=== PATIENT | female | born 2005 | race Caucasian/White ===

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

== ENCOUNTER 2023-07-16 11:51 | Outpatient (CLI) | payer OTHER, SELFPAY ==
[2023-07-16 12:10] LABS: Basophils Percent Auto 0.5 % (0.2-1.2); Eosinophils Absolute Auto 0.1 K/mm3 (0-0.3); Eosinophils Percent Auto 1.2 % (0-4.4); Hematocrit 33.8 % (37.0-47.0); Hemoglobin 10.6 g/dL (12.0-15.0); Immature Granulocyte Absolute 0.03 K/mm3 (0.00-0.031); Immature Granulocyte Percent A 0.4 % (0-0.5); Lymphocytes Absolute Auto 2.02 K/mm3 (0.9-3.2); Lymphocytes Percent Auto 24.3 % (18.3-44.2); Mean Corpuscular HGB Conc 31.4 g/dl (32-36); Mean Corpuscular Hemoglobin 26.6 pg (26-34); Mean Corpuscular Volume 84.9 fl (80-100); Mean Platelet Volume 10.6 fl (7.4-10.4); Monocytes Absolute Auto 0.6 K/mm3 (0.1-0.6); Monocytes Percent Auto 6.9 % (2.6-8.5); Neutrophils Absolute Auto 5.6 K/mm3 (1.3-6.7); Neutrophils Percent Auto 66.7 % (45.5-73.1); Platelet Count Result 347 k/mm3 (150-375); Red Blood Count 3.98 M/mm3 (4.2-5.4); White Blood Count 8.3 K/mm3 (4.5-10.0)
[2023-07-16 12:31] LABS: Hemoglobin A1C 5.2 % (<5.7)
[2023-07-16 12:45] LABS: Alanine Aminotransferase 28 U/L (6-35); Albumin Level 4.9 g/dL (3.7-5.6); Alkaline Phosphatase 70 U/L (45-116); Anion Gap 7 mmol/L (4-12); Aspartate Amino Transferase 23 U/L (14-36); Bilirubin,Total 0.4 mg/dL (0.2-1.3); Blood Urea Nitrogen 8 mg/dL (8-21); Calcium 9.5 mg/dL (8.9-10.7); Carbon Dioxide 25 mmol/L (22-30); Chloride 104 mmol/L (98-107); Cholesterol 157 mg/dL (0-200); Estimated Glomerular Filt Rate > 60; Glucose 90 mg/dL (65-110); HDL Direct 48 mg/dL; Sodium 136 mmol/L (134-143); Triglycerides 127 mg/dL (<150)
[2023-07-16 12:55] LABS: LDL Cholesterol Direct 96 mg/dL
[2023-07-16 14:14] LABS: Folic Acid 7.6 ng/mL (2.76->20)
== END 2023-07-16 11:52 | disposition home or self-care (01) ==
LOC: ANHLAB 11:52
PROVIDERS: PCP Physician Assistant; Visit Provider Physician Assistant
DX: Z00.00 Encounter for general adult medical examination without abnormal findings (principal); R73.9 Hyperglycemia, unspecified
CPT/HCPCS: 36415; 80053; 80061; 82607; 82746; 83036; 84443; 85025

== ENCOUNTER 2023-07-24 15:35 | Outpatient (CLI) | payer OTHER, SELFPAY ==
[2023-07-24 16:11] LABS: Iron 39 ug/dL (37-170)
[2023-07-24 16:21] LABS: Percent Iron Saturation 9 % (20-50)
[2023-07-24 16:46] LABS: Ferritin 6.07 ng/mL (6.24-137)
== END 2023-07-24 15:36 | disposition home or self-care (01) ==
LOC: ANHLAB 15:36
PROVIDERS: PCP Physician Assistant; Visit Provider Physician Assistant
DX: D64.9 Anemia, unspecified (principal)
CPT/HCPCS: 36415; 82728; 83540; 83550

== ENCOUNTER 2023-08-10 11:24 | Outpatient (CLI) | payer OTHER, SELFPAY ==
[2023-08-10 12:17] LABS: Beta HCG Quantitative < 2.39 mIU/ML
== END 2023-08-10 11:25 | disposition home or self-care (01) ==
LOC: ANHLAB 11:25
PROVIDERS: PCP Physician Assistant; Visit Provider Physician Assistant
DX: N92.6 Irregular menstruation, unspecified (principal)
CPT/HCPCS: 36415; 84702

== ENCOUNTER 2023-08-14 07:03 | Day surgery (SDC) | payer OTHER, SELFPAY ==
[2023-07-31 09:05] VITALS: BMI 29.9
[2023-08-01 14:07] VITALS: BMI 29.9
--- NOTE | 2023-08-10 08:54 | P.HP_ITS ---
History of Present Illness History of Present Illness Consent: Risks, benefits, and alternatives have been discussed and questions answered. Patient agrees to proceed with procedure. Chief complaint: Melena Narrative: Pedro Win is a 17 year old female who was recently found to be anemic during wellness exam. Hemoglobin was 10.6. Iron is low at 9% saturation. is having heavy periods. She will at times see some red blood when wiping herself after a bowel movement. Review of Systems Review of Systems: All systems reviewed & are unremarkable except as noted in HPI and below PMFSH Past Medical History Medical History Depression Surgical History Surgical History History of tonsillectomy Family History Family History Unknown Cancer Social History Social History Smoking status: Current every day smoker Tobacco type: e-cigarettes/vaping Alcohol intake: current Alcohol use details: occasional Substance use: unknown Substance use type: does not use Lack of Transportation: No Lack of Food: Never True Current Housing: I Have Housing Concerned About Future Housing: No Difficulty Paying Gas/Electric Bills: No Difficulty Paying for Meds: No Currently Unemployed: No Education: High School Diploma/GED Difficulty w/ Childcare or Family Care: No Living arrangements: with family Spiritual care concerns: No Meds Home Medications and Allergies Home Medications Medication Instructions Recorded Confirmed Type aripiprazole 2 mg tablet 2 mg PO DAILY #1 tablet 07/16/23 08/14/23 Rx venlafaxine 150 mg tablet,extended 150 mg PO DAILY #1 tablet 07/16/23 08/14/23 R x release 24 hr venlafaxine 75 mg tablet,extended 75 mg PO DAILY #1 tablet 07/16/23 08/14/23 Rx release 24 hr Allergies Allergy/AdvReac Type Severity Reaction Status Date / Time No Known Allergies Allergy Verified 08/14/23 07:46 Exam Const: General: alert Orientation/consciousness: patient oriented x3 Resp: Auscultation: clear to auscultation bilaterally Cardio: Rhythm: regular rhythm GI: GI Palp: Yes Soft to palpation and No Tenderness to palpation present (GI) Neuro: General: patient oriented x3 Assessment and Plan Assessment and plan (1) Iron deficiency anemia: Code(s): D50.9 - Iron deficiency anemia, unspecified Status: Acute Assessment and Plan: EGD with possible biopsy or dilatation or cautery. Colonoscopy with possible biopsy or polypectomy or cautery or injection of substances.
[2023-08-14 07:56] VITALS: BMI 31.8
[2023-08-14 07:57] VITALS: BP 137/77; PULSE 78; RESP 16; TEMP 37; O2SAT 99
[2023-08-14] MEDS: LACTATED RINGERS 1,000 ML 150 ML IV CONT (08:12)
--- NOTE | 2023-08-14 08:17 | P.PNAN_ITS ---
Anes - Initial Pre Proc Eval Procedure: Operation Date: 08/14/23 09:00 Proposed Procedures p Esophagogastroduodenoscopy - Pieter Gallardo MD s Diagnostic Colonoscopy - Pieter Gallardo MD Date/Time: 08/14/23 08:17 Surgeon: Pieter Gallardo MD Pre Op Diagnosis: Melena Patient Data Age: 17 Gender: F Height: 1.68 m Weight: 89.7 kg Last Vital Signs Temp 37.0 C 08/14/23 07:57 Pulse 78 08/14/23 07:57 Resp 16 08/14/23 07:57 BP 137/77 08/14/23 07:57 Pulse Ox 99 08/14/23 07:57 O2 Del Method Room Air 08/14/23 07:57 Allergies Allergy/AdvReac Type Severity Reaction Status Date / Time No Known Allergies Allergy Verified 08/14/23 07:46 Home Medications Medication Instructions Recorded Confirmed Type aripiprazole 2 mg tablet 2 mg PO DAILY #1 tablet 07/16/23 08/14/23 Rx venlafaxine 150 mg tablet,extended 150 mg PO DAILY #1 tablet 07/16/23 08/14/23 Rx release 24 hr venlafaxine 75 mg tablet,extended 75 mg PO DAILY #1 tablet 07/16/23 08/14/23 Rx release 24 hr Patient hx anesthesia problems: none Family hx anesthesia problems: none Results Review: All pre-operative results and documents have been reviewed as part of the pre- operative evaluation. [facility] Past Medical History Medical History Depression Surgical History Surgical History History of tonsillectomy Family History Family History Unknown Cancer Social History Social History Smoking status: Current every day smoker Tobacco type: e-cigarettes/vaping Alcohol intake: current Alcohol use details: occasional Substance use: unknown Substance use type: does not use Lack of Transportation: No Lack of Food: Never True Current Housing: I Have Housing Concerned About Future Housing: No Difficulty Paying Gas/Electric Bills: No Difficulty Paying for Meds: No Currently Unemployed: No Education: High School Diploma/GED Difficulty w/ Childcare or Family Care: No Living arrangements: with family Spiritual care concerns: No Anes - Eval Final PreProcedure Day of Procedure 08/14/23 08:17 Patient weight: overweight Heart: regular rate and rhythm Lungs: clear to auscultation Airway: Mallampati scale class II Neurological: alert and oriented Last oral intake: >/= 8 hours ASA classification: II Emergent: no Anesthetic plan: proceed Anesthesia type and monitoring: general GIVS and standard monitoring Results Review: All pre-operative results and documents have been reviewed as part of the pre- operative evaluation. Informed Consent: The patient's anesthetic plan and its attendant risks and benefits were discussed with the patient/family/POA. Questions were solicited and answers provided to the satisfaction of the patient/family/POA.
[2023-08-14 09:00] VITALS: BP 149/112; PULSE 77; RESP 16
[2023-08-14 09:40] VITALS: BP 116/69; PULSE 75; RESP 16; O2SAT 100
--- NOTE | 2023-08-14 09:48 | WPDANESPN ---
Anes - Prog Note Post-Op Date/Time: 08/14/23 09:48 Cardiovascular status: normal Respiratory status: normal Airway patency: baseline Mental status: baseline Post-Op hydration status: normal Vital Signs: Last Vital Signs Temp 37.0 C 08/14/23 07:57 Pulse 75 08/14/23 09:40 Resp 16 08/14/23 09:40 BP 116/69 08/14/23 09:40 Pulse Ox 100 08/14/23 09:40 O2 Del Method Room Air 08/14/23 09:40 Pain Score (VAS): 0 I/O: Intake & Output 08/13/23 08/14/23 08/14/23 23:59 07:59 15:59 Intake Total 700 Balance 700 Patient Feedback: Patient satisfied with anesthetic care.
[2023-08-14 09:50] VITALS: BP 119/73; PULSE 57; RESP 16; O2SAT 100
== END 2023-08-14 10:02 | disposition home or self-care (01) ==
PROVIDERS: PCP Physician Assistant; Visit Provider Internal Medicine Gastroenterology
PROC: 0DJ08ZZ Inspection of Upper Intestinal Tract, Via Natural or Artificial Opening Endoscopic (ICD-10-PCS; CPT 43235; principal; 2023-08-14 09:00)
PROC: 0DJD8ZZ Inspection of Lower Intestinal Tract, Via Natural or Artificial Opening Endoscopic (ICD-10-PCS; CPT 45378; 2023-08-14 09:00)
DX: D50.9 Iron deficiency anemia, unspecified (principal); Z12.11 Encounter for screening for malignant neoplasm of colon; K64.8 Other hemorrhoids
CPT/HCPCS: 45378; 43239

== ENCOUNTER 2023-08-14 09:35 | Outpatient (NON) | payer OTHER, SELFPAY | END 2023-08-14 09:36 | disposition home or self-care (01) | LOC: ANHLAB 08-15 09:36 | PROVIDERS: PCP Physician Assistant; Visit Provider Internal Medicine Gastroenterology | DX: K92.1 Melena (principal) | CPT/HCPCS: 88305 ==

== ENCOUNTER 2024-04-28 17:03 | Emergency (ER) | payer OTHER, SELFPAY ==
--- NOTE | ~2024-04-28 | US_ITS ---
EXAMINATION: US pelvic complete DATE: 04/28/2024 19:11 INDICATION: Left lower quadrant abdominal pain. TECHNIQUE: Multiple transabdominal sonographic images of the pelvis were obtained. COMPARISON: None. FINDINGS: The uterus is poorly visualized and measures 6.0 x 4.0 x 3.9 cm. There is no free fluid in the pelvis . The ovaries are not visualized. IMPRESSION: 1. Poorly visualized uterus. 2. Ovaries not visualized. Reviewed, dictated and finalized at location A. IDE SALES ADVERTISING EXECUTIVE
--- NOTE | ~2024-04-28 | CT_ITS ---
EXAMINATION: CT abdomen pelvis w con DATE: 04/28/2024 20:37 INDICATION: Left abdominal pain. Nausea. TECHNIQUE: Computed tomography (CT) of the abdomen and pelvis was performed with 100 mL Omnipaque 350 intravenous contrast. Automated exposure control and iterative reconstruction technique were employe d. The dose-length product was 1213.99 mGy-cm. COMPARISON: Pelvis ultrasound 04/28/2024 FINDINGS: The visualized portions of the lung bases are clear without pneumonia or pleural effusion. The heart size is normal. No pericardial effusion. The liver, gallbladder, spleen, pancreas, adrenal glands, and kidneys are normal. The uterus and ovaries are normal. There is fat stranding around an e piploic appendage of the sigmoid colon, consistent with epiploic appendagitis. The appendix is fluid- filled with diameter of 7 mm. No adjacent fat stranding. There are no dilated loops of bowel. There i s no free intraperitoneal fluid. There is mild lumbar spondylosis. IMPRESSION: 1. Epiploic appendagitis of the sigmoid colon. 2. Appendiceal diameter of 7 mm, which is indeterminate for appendicitis. Correlate with physical exa m. Reviewed, dictated and finalized at location A. INE CEMENTER IMPRESSION: 1. Epiploic appendagitis of the sigmoid colon. 2. Appendiceal diameter of 7 mm, which is indeterminate for appendicitis. Corre late with physical exam.
--- OUTSIDE RECORDS SUMMARY | 2024-04-28 17:05 | XMS_ITS ---
Author Organization [facility] Address [address] [place] [address] Care Team Providers Care Investment Specialist Name Role Phone Florina Odonnell Primary Care Provider Allergies No Known Allergies Reason For Referral Reason Would like to start therapy. Diagnosis 1 Major depressive dis order, recurrent, moderate (F33.1) Referral Organization [facility] Referring Provider First Name Florina Referring Provider Last Name Blas Referring Provider Speciality Psychiatry Referred Provider Specialty Behavioral [facility] Clinical Notes Nichole Ordonez 02/01/2024 02:57:42 PM CDT > HN called the client and provided the number to CA [phone]. Client states she understands the process and will call CA to initiate starting the therapy process. Client knows not to leave any messages and to wait for a live person. Once the client is open to services, she is aware she should call on Sun or at 0630 to schedule a same day appt. Client was also provided the HN direct phone number just in case she needs any assistance with getting this process started, .Nichole Ordonez 02/04/2024 01:26:31 PM SWE[employer]ER > Appt scheduled with Brinda Odonnell for 02-12-24, still do not see therapy set up yet.Mery Kristina L 02/07/2024 07:52:43 AM >HN called client to address therapy getting started. Left message for client to return a call to update the status of therapy getting started. Referral Priority Routine REASON FOR VISIT 3 Month Psych F/U & Med Refill Medications Medication SIG (Take, Route, Fr equency, Duration) Notes Start Date End Date Status Effexor XR 75 MG 1 capsule with food Orally Once a day for 30 days 05/26/2022 Active Effexor XR 150 MG 1 capsule with food Orally Once a day for 30 days Active Nexplanon 68 MG as directed Subcutaneous Not-Taking ARIPiprazole 5 MG 1 tablet Orally Once a day for 30 days Active Social History Tobacco Use: Social History Observation Description Date Details (start date - stop date) Never Smoker NA - NA Sex Assigned At : Social History Observation Description Sex Assigned At Female Tobacco Control (Standard) Question Answer Notes Tobacco use: Nonsmoker Encounters Encounter Location Date Provider Diagnosis [facility] [address] [place] [address] 01/15/2024 Florina Odonnell Major depressive disorder, recurrent, moderate F33.1 and Generalized anxiety disorder F41.1 Assessments Encounter Date Diagnosis (ICD Code) Assessment Notes Treatment Notes Treatment Clinical Notes Section Notes 01/15/2024 Major depressive disorder, recurrent, moderate (ICD-10 - F33.1) Increase Abilify to help with depression. Can increase to 1/2 tab first. Stopping caffeine in the afternoon to help with sleep and racing thoughts. Continue services as scheduled. Labs completed recently. May self-administer medications or be administered own oral medications per [facility] protocols. Provided informed consent with understanding of side effects, adverse effects, risks and benefits as well as alternative treatments as previously discussed and with the above recommended medications & other aspects of the treatment program. Agrees to return sooner if symptoms worsen or suicidal or homicidal ideations occur. 01/15/2024 Generalized anxiety disorder (ICD-10 - F41.1) Plan Of Treatment Medication Medication Name Sig Start Date Stop Date Notes Effexor XR 75 MG 1 capsule with food Orally Once a day for 30 days 05/26/2022 Effexor XR 150 MG 1 capsule with food Orally Once a day for 30 days ARIPiprazole 5 MG 1 tablet Orally Once a day for 30 days Treatment Notes Assessment Notes Major depressive disorder, r ecurrent, moderate Increase Abilify to help with depression. Can increase to 1/2 tab first. Stopping caffeine in the afternoon to help with sleep and racing thoughts. Continue services as scheduled. Labs completed recently. May self-administer medications or be administered own oral medications per [facility] protocols. Provided informed consent with understanding of side effects, adverse effects, risks and benefits as well as alternative treatments as previously discussed and with the above recommended medications & other aspects of the treatment program. Agrees to return sooner if symptoms worsen or suicidal or homicidal ideations occur. Referrals Referral Date Details 01/15/2024 01/15/2024, Would emmanuel jackson to start therapy. Next Appt Details Follow Up: 4 Weeks, Reason: Medication management - can be telehealth appt. Progress Notes * Nile LINaDOB:2005 (1 0 yo F)Acc No.[id number]:01/15/2024 Patient:?Pedro LIN Provider:?Florina Odonnell DNP, PMHNP- , [employer] :2005???Age:18 Y???Sex:Female D ate:01/15/2024 Address:[address] [place], [place] [id number] Subjective: * Chief Complaints: * ???3 Month Psych F/U & Med R efill * HPI: ???Depression Screening:?PHQ-9?Little interest or pleasure in doing things?Not at all ?Feeling down, depressed, or hopeless?Several days ?Trouble falling or staying asleep, or sleeping too much?Nearly every day ?Feeling tired or having little energy?Several days ?Poor appetite or overeating?Not at all ?Feeling bad about yourself or that you are a failure, or have let yourself or your family down?Not at all ?Trouble concentrating on things, such as reading the newspaper or watching television?Not at all ?Moving or speaking so slowly that other people could have noticed; or the opposite, being so fidgety or restless that you have been moving around a lot more than usual?Not at all ?Thoughts that you would be better off or of hurting yourself in some way?Not at all ?Total Score?5 ?Interpretation?Mild Depression ?Intervention?Depression Screening Findings?Negative ?Follow-Up for Depression?No Referral necessary, patient involved in behavioral health treatment . ???Screening:?[place] Suicide Severity Rating Scale (LF)?Do you want to initiate with?Screener form ?Interpretation:?Low Risk ?6. Suicide Behaviour: Have you ever done anything,started to do anything, or prepared to end your life??No ?2. Suicidal Thoughts: Have you actually had any thoughts of killing yourself??No ?1. Wish to be : Have you wished you were or wished you could go to sleep and not wake up??No ???CSSRS Interpretation and Follow Up Plan:? CSSRS Interpretation and Follow Up Plan. ?CSSRS Interpretation and Follow Up Plan?Moderate or High risk requires selection of a follow up plan?CSSRS No/Low: intervention not needed at this time ???Psych F/U:? Patient presents for psychiatric follow-up visit. Changes since the last visit-- Has been feeling out of sorts in her head. Got a new job after working in a bad work environment. Been feeling bad. Does feeling happy at times. Her dog makes her happy.? Goals--- Tournament in soccer.? Coping Skills-- Reading. Puppy- cypriot henry and vitor devliniel Medications effective.---Somewhat effective. Would like to change the dose.? Medication Adherence--- Yes Side effects.--- Denies current SE Sleep--- Difficulty falling and staying asleep. Racing thoughts at night.??Has been drinking caffeine at night.? Appetite--- Good. Depression--- 07/10 Anxiety--- 10/09 Anger/Irritability--- 08/09 Hallucinations--- Denies. Suicidal ideation--- Denies Homicidal ideation--- Denies. Medical concerns or hospitalizations. No changes Therapy-- Denies. ???Abnormal Involuntary Movement Scale:?Denies : Facial and Oral Movements?Muscles of Facial Expression?0- None ?Lips and Perioral Area?0- None ?Jaw?0- None ?Tongue?0- None ?Denies : Extremity Movements?Upper (arms, wrists, hands, fingers)?0- None ?Lower (legs, knees, ankles, toes)?0- None ?Denies : Trunk Movements?Neck, Shoulders and hips?0- None ?Denies : Global Judgement?Severity of abnormal movements overall?0- None ?Incapacitation due to abnormal movements?0- None ?Patient's awareness of abnormal movements?0- No Awareness ?Denies : Dental Status?Current problems with teeth and/or dentures?No ?Are dentures usually worn??No ?Endentia?No ?Do movements disappear with sleep??No ?Denies : Subjective Experience .? * ROS:?Psych ROS:?Constitutional?Denies.?Eyes?Denies.?Ears/Nose/Mouth/Throat?Denies.?Respirat ory?Denies.?Allergic /Immunologic?Denies.?Cardiovascular?Denies.?GI?Denies.??Denies.?Musculoskeleta l?Denies.?Ne u rological?Denies.?Integumentary?Denies.?Endocrine?Denies.?Hematological/Lymphati c?Denies.?Psychiatric- Anxiety. * Medical History:? * Surgical History:?tonsillect lianet 2007 * Hospitalization/Major Diagno stic Procedure:?[facility] 07/2021 * Family History:?Father: jann fajardo.?Mother: alive.?2 sister(s) - healthy. .? 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 ???Tobacco Use:?Tobacco Control (Standard)?Tobacco use:?Nonsmoker * Medications:?TakingEffexor X R 150 MG Capsule Extended Release 24 Hour 1 capsule with food Orally Once a day Effexor XR 75 MG Capsule Extended Release 24 Hour 1 capsule with food Orally Once a day ARIPiprazole 2 MG Tablet 1 tablet Orally Once a day Taking Effexor XR 150 MG Capsule Extended Release 24 Hour 1 capsule with food Orally Once a day Taking Effexor XR 75 MG Capsule Extended Release 24 Hour 1 capsule with food Orally Once a day Taking ARIPiprazole 2 MG Tablet 1 tablet Orally Once a day Not-TakingNexplanon 68 MG Implant as directed Subcutaneous Medication List reviewed and reconciled with the patientNot-Taking Nexplanon 68 MG Implant as directed Subcutaneous Medication List reviewed and reconciled with the patient * Allergies:?N.K.D.A.no[Allerg ies Verified] Objective: * Vitals:? * Examination: ???Mental Status Exam: ?SENSORIUM AND COGNITION?Alert , Oriented to Person , Oriented to Place , Oriented to Time , Oriented to Situation.?ATTENTION AND CONCENTRATION?No deficits.?ATTITUDE AND BEHAVIOR?Cooperative.?MEMORY?Immediate , Recent , Remote.?AFFECT?Broad/Full.?MOOD?Euthymic.?SPEECH QUANTITY?Appropriate.?SPEECH QUALITY?Spontaneous , Fluent , Appropriate volume.?THOUGHT PROCESS?Coherent and goal directed.?THOUGHT CONTENT?Appropriate - WNL.?LANGUAGE?Appropriate- WNL.?SUICIDAL IDEATION?Denies suicidal ideation.?HOMICIDAL IDEATION?Denies homicidal ideation.?HALLUCINATIONS?Denies hallucinations.?INSIGHT?Fair.?JUDGMENT?Fair.?FUND OF KNOWLEDGE?Fair.?ABILITY TO PARTICIPATE IN TREATMENT?Moderate?.?WILLINGNESS TO PARTICIPATE IN TREATMENT?Moderate.?SIGNIFICANT FINDINGS REGARDING MENTAL STATUS?None.? Assessment: * Assessment: 1.?Major depressive disorder , recurrent, moderate - F33.1 (Primary)???2.?Generalized anxiety disorder - F41.1??? Plan: * Treatment: * Procedure Codes:? 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 History and Physical Notes * HPI (History of Present Illness) Category Sub-Category Detail Notes Category Not es Depression Screening PHQ-9 Little inte rest or pleasure in doing things: Not at all Feeling down, depressed, or hopeless: Se veral days Trouble falling or staying asleep, or sl eeping too much: Nearly every day Feeling tired or having little energy: S everal days Poor appetite or overeating: Not at all Feeling bad about yourself o r that you are a failure, or have let yourself or your family down: Not at all Trouble concentrating on thi ngs, such as reading the newspaper or watching television: Not at all Moving or speaking so slowly that other people could have noticed; or the opposite, being so fidgety or restless that you have been moving around a lot more than usual: Not at all Thoughts that you would be b mario alberto off or of hurting yourself in some way: Not at all Total Score: 5 Interpretation: Mild Depression Intervention Depression Screening Findings: N egative Follow-Up for Depression: No Referral necessary, patient involved in behavioral health treatment . Abnormal Involuntary Movement Scale Facial and Oral Movements Muscles of Facial Expression: 0- None Lips and Perioral Area: 0- None Jaw: 0- None Tongue: 0- None Extremity Movements Upper (arms, wrists, hands, fingers): 0- None Lower (legs, knees, ankles, toes): 0- No ne Trunk Movements Neck, Shoulders and hips: 0- Non e Global Judgement Severity of abnormal movements overall: 0- None Incapacitation due to abnormal movements : 0- None Patient's awareness of abnormal movement s: 0- No Awareness Dental Status Current problems with teeth and/ or dentures: No Are dentures usually worn?: No Endentia: No Do movements disappear with sleep?: No Subjective Experience Screening [place] Suicide Sev erity Rating Scale (LF) Do you want to initiate with: Screener form ?Interpretation:: Low Risk ?6. Suicide Behaviour: Have you ever done anything,started to do anything, or prepared to end your life?: No ?2. Suicidal Thoughts: Have you actually had any thoughts of killing yourself?: No ?1. Wish to be : Have yo u wished you were or wished you could go to sleep and not wake up?: No Do Not Use CSSRS Interpretation and Follow Up Plan CSSRS Interpretation and Follow Up Plan Moderate or High risk requires selection of a follow up plan: CSSRS No/Low: intervention not needed at this time Examination Category Sub-Category Detail Notes Category Not es Mental Status Exam SENSORIUM AND COGNITION Alert , Oriented to Person , Oriented to Place , Oriented to Time , Oriented to Situation ATTENTION AND CONCENTRATION No deficits ATTITUDE AND BEHAVIOR Cooperative MEMORY Immediate , Recent , Remote AFFECT Broad/Full MOOD Euthymic SPEECH QUANTITY Appropriate SPEECH QUALITY Spontaneous , Fluent , Appropriate volume THOUGHT PROCESS Coherent and goal di rected THOUGHT CONTENT Appropriate - WNL SUICIDAL IDEATION Denies suicidal idea tion HOMICIDAL IDEATION Denies homicidal lien ation HALLUCINATIONS Denies hallucination s INSIGHT Fair JUDGMENT Fair FUND OF KNOWLEDGE Fair ABILITY TO PARTICIPATE IN TREATMENT Mode rate WILLINGNESS TO PARTICIPATE IN TREATMENT Moderate SIGNIFICANT FINDINGS REGARDI NG MENTAL STATUS None LANGUAGE Appropriate- WNL Consultation Request Notes Referral Date Referring Provider Referred Provider Not socorro 01/15/2024 Florina Odonnell , Would like to start therapy.
--- OUTSIDE RECORDS SUMMARY | 2024-04-28 17:05 | XMS_ITS | Continuity of Care Document ---
Author Name [facility] Organization [facility] Care Team Providers Care Italian Tutor Name Role Phone [facility] Unavailable Unavailable Vital Signs Combined list of inpatient and outpatient Vital Signs from [facility], ranging from 12 months to all on record, depending upon the facility. Vital Sign Value Date Comments Source No data available for this section Ambulatory Pharmacy Encounters Combined list of: 1) Encounters from [facility] facilities going back up to thelast 18 months. 2) Encounters from the [facility] facilities going back up to 280 months. Location Location Details Encounter Type Encounter Number Reason For Visit Attending Provider ADM Date DC Date Status Disposition Source Ambulator y Pharmacy Lifetime Pharmacy [id number] 01/23 Ambulat ory Pharmac y Procedures Combined list of: 1) Procedures from [facility] facilities going back up to thelast 18 months, not all [place] non-surgical procedures are included; 2) All procedures from the [facility] facilities. Procedure Procedure Type Code Date Perfomer Comments Sourc e No data available for this section Ambulatory P harmacy Assessment and Plan Combined list of future care activities from [facility] facilities (e.g., assessment and plan notes, appointments, orders, and referrals). Additional future care activities may be listed in the Plan of Care section. Result Assessment and Plan Date Source Assessment and Plan No data available for this section 04/28/2024 Ambulatory Pharmacy Functional Status Combined list of recent functional and cognitive assessments recorded at [facility] Functional [place] Measurement (FIM) Scale: 1 = Total Assistance (Subject = 0% +), 2 = Maximal Assistance (Subject = 25% +), 3 = Moderate Assistance (Subject = 50% +), 4 = Minimal Assistance (Subject = 75% +), 5 = Supervision, 6 = Modified [place] (Device), 7 = Complete [place] (Timely, Safely). Assessment Date/Time Source Assessment Type Assessment Skill Assessment Score Assessment Details No data available for this section
--- OUTSIDE RECORDS SUMMARY | 2024-04-28 17:05 | XMS_ITS | Patient Health Record ---
Author Organization [facility] Address [address] [place] [address] Care Team Providers Care Patient Financial Rep Name Role Phone Florina Odonnell Primary Care Provider [phone] Toni Cuadra Unavailable Allergies No Known Allergies Reason For Referral Reason Would like to start therapy. Diagnosis 1 Major depressive dis order, recurrent, moderate (F33.1) Referral Organization [facility] Referring Provider First Name Florina Referring Provider Last Name Blas Referring Provider Speciality Psychiatry Referred Provider Specialty Behavioral H [facility] Clinical Notes Nichole Ordonez 02/01/2024 02:57:42 PM CDT > HN called the client and provided the number to [place] [phone]. Client states she understands the process and [...] process started, .Nichole Ordonez 02/04/2024 01:26:31 PM CUPOLA PATCHER HELPER > Appt scheduled with Brinda Odonnell for 02-12-24, still do not see therapy set up yet.Mery Kristina L 02/07/2024 07:52:43 AM >HN called client to address therapy getting started. Left message for client to return a call to update the status of therapy getting started. Referral Priority Routine Medications Medication SIG (Take, Route, Fr equency, Duration) Notes Start Date End Date Status Nexplanon 68 MG as directed Subcutaneous Not-Taking Effexor XR 150 MG 1 capsule with food Orally Once a day for 30 days Active Effexor XR 75 MG 1 capsule with food Orally Once a day for 30 days 05/26/2022 Active Social History Tobacco Use: Social History Observation Description Date Details (start date - stop date) Current Smoker NA - NA Sex Assigned At : Social History Observation Description Sex Assigned At Female Tobacco Control (Standard) Question Answer Notes Tobacco use: Current smoker How often do you smoke cigarettes? Every day Problems Problem Type SNOMED Code ICD Code Onset Dates Problem Status W/U Status Risk Notes Problem Tobacco user (223806594) Nicotine dependence, unspecified, uncomplicated (F17.200) Active confirmed Problem 232527809 Major depressive disorder, recurrent, moderate (F33.1) Active confirmed Problem 75174375 Generalized anxiety disorder (F41.1) Active confirmed Encounters Encounter Location Date Provider Diagnosis [facility] [place] [address] 07/05/2023 Florina Odonnell Major depressive disorder, recurrent, moderate F33.1 and Generalized anxiety disorder F41.1 [place] [address] [place] [address] 08/14/2023 Florina Odonnell Major depressive disorder, recurrent, moderate F33.1 ; Generalized anxiety disorder F41.1 and Nicotine dependence, unspecified, uncomplicated F17.200 [place] [address] [place] [address] 01/15/2024 Florina Odonnell Major depressive disorder, recurrent, moderate F33.1 and Generalized anxiety disorder F41.1 [place] [address] [place] [address] 02/12/2024 Florina Odonnell Major depressive disorder, recurrent, moderate F33.1 and Generalized anxiety disorder F41.[address] [address] 06/25/2023 Florina Odonnell [address] [place] [address] 08/06/2023 Florina Odonnell Major depressive disorder, recurrent, moderate F33.1 [facility] [address] [place] [address] 01/10/2024 Florina Odonnell Major depressive disorder, recurrent, moderate F33.1 [facility] [address] [place] [address] 01/30/2024 Toni Cuadra Assessments Encounter Date Diagnosis (ICD Code) Assessment Notes Treatment Notes Treatment Clinical Notes Section Notes 08/06/2023 Major depressive disorder, recurrent, moderate (ICD-10 - F33.1) 08/14/2023 Major depressive disorder, recurrent, moderate (ICD-10 - F33.1) Continue current medications. Continue services as scheduled. Labs completed recently. May self-administer medications or be administered own oral medications per [employer] protocols. Provided informed consent with understanding of side effects, adverse effects, risks and benefits as well as alternative treatments as previously discussed and with the above recommended medications & other aspects of the treatment program. Agrees to return sooner if symptoms worsen or suicidal or homicidal ideations occur. 02/12/2024 Major depressive disorder, recurrent, moderate (ICD-10 - F33.1) Stop abilify due to side effects. Consistency encouraged on effexor. Continue services as scheduled. Labs completed recently. May self-administer medications or be administered own oral medications per [employer] protocols. Provided informed consent with understanding of side effects, adverse effects, risks and benefits as well as alternative treatments as previously discussed and with the above recommended medications & other aspects of the treatment program. Agrees to return sooner if symptoms worsen or suicidal or homicidal ideations occur. 01/15/2024 Major depressive disorder, recurrent, moderate (ICD-10 - F33.1) Increase Abilify to help with depression. Can increase to 1/2 tab first. Stopping caffeine in the afternoon to help with sleep and racing thoughts. Continue services as scheduled. Labs completed recently. May self-administer medications or be administered own oral medications per [employer] protocols. Provided informed consent with understanding of side effects, adverse effects, risks and benefits as well as alternative treatments as previously discussed and with the above recommended medications & other aspects of the treatment program. Agrees to return sooner if symptoms worsen or suicidal or homicidal ideations occur. 01/10/2024 Major depressive disorder, recurrent, moderate (ICD-10 - F33.1) 07/05/2023 Major depressive disorder, recurrent, moderate (ICD-10 - F33.1) Continue current medications, augment with abilify to help with some lingering mood instability. Continue services as scheduled. Labs completed recently. May self-administer medications or be administered own oral medications per [place] protocols. Provided informed consent with understanding of side effects, adverse effects, risks and benefits as well as alternative treatments as previously discussed and with the above recommended medications & other aspects of the treatment program. Agrees to return sooner if symptoms worsen or suicidal or homicidal ideations occur. 07/05/2023 Generalized anxiety disorder (ICD-10 - F41.1) 01/15/2024 Generalized anxiety disorder (ICD-10 - F41.1) 02/12/2024 Generalized anxiety disorder (ICD-10 - F41.1) 08/14/2023 Generalized anxiety disorder (ICD-10 - F41.1) 08/14/2023 Nicotine dependence, unspecified, uncomplicated (ICD-10 - F17.200) Plan Of Treatment No Information Insurance Providers Payer Name Payer Address Payer Phone Subscriber Number Group Number Insured Name Patient Relationship to Insured Coverage Start Date Coverage End Date [employer] [address] [place] [address] [id number] Pedro Win Self - patient is the insured Medical (General) History Surgical History Surgery Date(Month/Year) tonsillectomy 2007 Hospitalization History Reason Date(Month/Year) -[facility] 07/2021 [facility] 2013
--- OUTSIDE RECORDS SUMMARY | 2024-04-28 17:05 | XMS_ITS | Clinical Summary ---
Author Organization [facility] [address] Address [address] [place] [address] Care Team Providers Care Reed Press Feeder Name Role Phone Unavailable Primary Care Provider Unavailabl e Social History Tobacco Use Types Packs/Day Years Used Date Smoking Tobacco: Never Assessed Comments Unknown Sex and Gender Information Value Date Recorded Sex Assigned at Not on file Legal Sex Female 7:[address] SCAN TECHNOLOGIST Gender Identity Not on file Sexual Orientation Not on file Plan of Treatment Upcoming Encounters Date Type Department Care Team (Late st Contact Info) Description 05/16/2024 8:[address] SCAN TECHNOLOGIST Office Visit [facility] Primary Care [facility] [address] [facility] [address] [place] [address] Kristopher Riley PA-C [address] [place] [address] Health Maintenance Due Date Last Done Comments CHLAMYDIA SCREENING (ANNUAL) 11-24 YEARS 11/03/2014 HPV VACCINES (1 - 3-dose series) 11/03/2018 DTAP/TDAP/TD VACCINES (1 - Tdap) 11/03/2022 HEPATITIS B VACCINES (1 of 3 - 19+ 3-dose series) 07/2022 INFLUENZA VACCINE (#1) 2023
[2024-04-28 17:06] VITALS: BP 142/98; PULSE 101; RESP 20; TEMP 36.4; O2SAT 100
--- OUTSIDE RECORDS SUMMARY | 2024-04-28 17:06 | XMS_ITS ---
Author Organization [facility] Address [address] [place] [address] Care Team Providers Care Lei Maker Name Role Phone Florina Odonnell Primary Care Provider Allergies No Known Allergies REASON FOR VISIT 1 Month Psych F/U & Med Refill Medications [...] often do you smoke cigarettes? Every day Encounters Encounter Location Date Provider Diagnosis [facility] [place] [address] 02/12/2024 Florina Odonnell Major depressive disorder, recurrent, moderate F33.1 and Generalized anxiety disorder F41.1 Assessments Encounter Date Diagnosis (ICD Code) Assessment Notes Treatment Notes Treatment Clinical Notes Section Notes 02/12/2024 Major depressive disorder, recurrent, moderate (ICD-10 - F33.1) Stop abilify due to side effects. Consistency encouraged on effexor. Continue services as scheduled. Labs completed recently. May self-administer medications or be administered own oral medications per [place] protocols. Provided informed consent with understanding of side effects, adverse effects, risks and benefits as well as alternative treatments as previously discussed and with the above recommended medications & other aspects of the treatment program. Agrees to return sooner if symptoms worsen or suicidal or homicidal ideations occur. 02/12/2024 Generalized anxiety disorder (ICD-10 - F41.1) Plan Of Treatment Medication Medication Name Sig Start Date Stop Date Notes ARIPiprazole 5 MG 1 tablet Orally Once a day Effexor XR 150 MG 1 capsule with food Orally Once a day for 30 days Effexor XR 75 MG 1 capsule with food Orally Once a day for 30 days 05/26/2022 Treatment Notes Assessment Notes Major depressive disorder, r ecurrent, moderate Stop abilify due to side effects. Consistency encouraged on effexor. Continue services as scheduled. Labs completed recently. May self-administer medications or be administered own oral medications per [employer] protocols. Provided informed consent with understanding of side effects, adverse effects, risks and benefits as well as alternative treatments as previously discussed and with the above recommended medications & other aspects of the treatment program. Agrees to return sooner if symptoms worsen or suicidal or homicidal ideations occur. Next Appt Details Follow Up: 4 Weeks, Reason: Medication management - can be telehealth appt. Progress Notes * VANITRENTONAngeliqueB:2005 (1 0 yo F)Acc No.[id number]:02/12/2024 Patient:?Pedro LIN Provider:?Florina Odonnell DNP, PMHNP- , NEWSPAPER CLIPPER :2005???Age:18 Y???Sex:Female D ate:02/12/2024 Address:[address] [place], [place] [id number] Subjective: * Chief Complaints: * ???1 Month Psych F/U & Med R efill * HPI: ???Depression Screening:?PHQ-9?Little interest or pleasure in doing things?Not at all ?Feeling down, depressed, or hopeless?Several days ?Trouble falling or staying asleep, or sleeping too much?More than half the days ?Feeling tired or having little energy?Several days [...] yourself in some way?Not at all ?Total Score?4 ?Interpretation?Minimal Depression ?Intervention?Depression Screening Findings?Negative ?Follow-Up for Depression?No Referral necessary, patient involved in behavioral health treatment . ???Screening:?[place] Suicide Severity Rating Scale (LF)?Do you want [...] follow-up visit. Changes since the last visit-- States that she feels needs to go to therapy. Some insurance issues. Going to look for a therapist. Moods are feeling off. Feeling angry.? Goals--- Tournament in soccer.? Coping Skills-- Reading. Puppy- [place] henry and vitor spaniel Medications effective.--- Yes, when taking consistently Medication Adherence--- Moods are better when taking consistently. Alarm on phone now Side effects.--- Denies current SE Sleep--- Difficulty?staying asleep.?? Appetite--- increased. Feels hungry a lot. Weight gain. Doesn't want to weigh herself.? Depression--- 08/09 Anxiety--- 08/09 Anger/Irritability--- 10/09 Hallucinations--- Denies. Suicidal ideation--- Denies Homicidal ideation--- Denies. Medical concerns or hospitalizations. No changes Therapy-- Is looking at starting therapy. ???Abnormal Involuntary Movement Scale:?Denies : Facial and [...] lianet 2007 * Hospitalization/Major Diagno stic Procedure:?[facility] 07/2021 * Family History:?Father: jann fajardo.?Mother: alive.?2 sister(s) - healthy. .? * Social History:?Primary Social History:?Living Arrangement?Living Arrangement:?Dependent Living ?Living with:?Parent(s) ?Is this a supportive environment??No ?Alcohol Use?Alcohol Use Frequency:?Never ?Illicit Substance Usage?Illicit Substance Usage:?No ?Employment Status?Employment Status:?Employed [employer] Student ???Tobacco Use:?Tobacco Control (Standard)?Tobacco use:?Current smoker ?How often do you smoke cigarettes??Every day * Medications:?TakingEffexor X R 150 MG Capsule Extended Release 24 Hour 1 capsule with food Orally Once a day Effexor XR 75 MG Capsule Extended Release 24 Hour 1 capsule with food Orally Once a day ARIPiprazole 5 MG Tablet 1 tablet Orally Once a day Taking Effexor XR 150 MG Capsule Extended Release 24 Hour 1 capsule with food Orally Once a day Taking Effexor XR 75 MG Capsule Extended Release 24 Hour 1 capsule with food Orally Once a day Taking ARIPiprazole 5 MG Tablet 1 tablet Orally Once a [...] - can be telehealth appt.) * * OUTCOMES Sign off status: Completed true * Provider:Diamond Deras PENSION ADVISER, PMHNP-, NEWSPAPER CLIPPER Date:?02/12/2024 Generated for Printing/[employer] Interactiveg/eTransmitting on:?04/28/2024 05:06 PM VP OUTCOMES History and Physical Notes * HPI (History of Present Illness) Category Sub-Category Detail Notes Category Not es Depression Screening PHQ-9 Little inte rest or pleasure in doing things: Not at all Feeling down, depressed, or hopeless: Se veral days Trouble falling or staying a sleep, or sleeping too much: More than half the days Feeling tired or having little energy: S [...] some way: Not at all Total Score: 4 Interpretation: Minimal Depression Intervention Depression Screening Findings: N egative [...] disappear with sleep?: No Subjective Experience Screening Kirklin Suicide Sev erity Rating Scale (LF) Do [...]
--- OUTSIDE RECORDS SUMMARY | 2024-04-28 17:06 | XMS_ITS ---
[facility] Organization [facility] Address [address] [place] [address] Care Team Providers Care Furniture Duster Name Role Phone Florina Odonnell Primary Care Provider Toni Cuadra Unavailable [phone] REASON FOR VISIT Get connected with outpatient Social History Sex Assigned At : Social History Observation Description Sex Assigned At Female Encounters Encounter Location Date Provider Diagnosis [address] [address] 01/30/2024 Toni Cuadra Plan Of Treatment No Information Progress Notes * Nile LINaDOB:2005 (1 0 yo F)Acc No.[id number]:01/30/2024 Patient:?DELIA Pedro :2005???Age:18 Y???Sex:Female Address:[address] [place], [address] * true * Date:? Generated for Mos[employer] mai/Orestes/eTransmitting on:?04/28/2024 05:05 PM ELECTRONIC NEWS GATHERING CAMERA PERSON
--- NOTE | 2024-04-28 17:59 | ED_ITS ---
HPI - Abdominal Pain General Chief Complaint: Abdominal Pain <ALAINA Fermin Last Filed: 04/28/24 18:05> Stated Complaint: L UPPER ABD PAIN X1D <ALAINA Fermin Last Filed: 04/28/24 18:05> Time Seen by Provider: 04/28/24 17:59 <ALAINA Fermin Last Filed: 04/28/24 18:05> Focused HPI: patient is a 18-year-old female who presents the ED with report of left-sided abdominal pain. Patient reports she developed pain throughout her left upper abdomen last night. States pain has continued to worsen today, radiates into her lower abdominal region. Has tried taking ibuprofen without relief. Reports hx of previous ovarian cyst with rupture which felt somewhat similar. Reports intermittent nausea, denies vomiting. Denies urinary complaints. Denies vaginal bleeding. GENERAL: Well-appearing, well-nourished, and in no acute distress. HEAD: Normocephalic, atraumatic. CHEST: Clear to auscultation. ?No respiratory distress. HEART: Regular rate and rhythm.? ABD: Mild TTP in mid and upper L sided abdomen. Normoactive BS NEURO: ?Alert and oriented x3. Patient screened in triage and initial orders placed.? ?Additional care and disposition to be based upon?diagnostic testing and treatment. <ALAINA Fermin Last Filed: 04/28/24 18:05> Source: patient <ALAINA Fermin Last Filed: 04/28/24 18:05> Mode of arrival: ambulatory <ALAINA Fermin Last Filed: 04/28/24 18:05> Limitations: no limitations <ALAINA Fermin Last Filed: 04/28/24 18:05> Related Data Allergies/Adverse Reactions: Allergies Allergy/AdvReac Type Severity Reaction Status Date / Time No Known Allergies Allergy Verified 04/28/24 17:04 <ALAINA Fermin Last Filed: 04/28/24 18:05> PMFSH Past Medical History Medical History: Medical History Depression <Ally Craft PA-C - Last Filed: 04/28/24 18:05> Surgical History Surgical History: Surgical History History of tonsillectomy <Ally Craft PA-C - Last Filed: 04/28/24 18:05> Family History Family History: Family History Unknown Cancer <Ally Craft PA-C - Last Filed: 04/28/24 18:05> Social History Social History: Social History Smoking status: Current every day smoker Tobacco type: e-cigarettes/vaping Alcohol intake: current Alcohol use details: occasional Substance use: unknown Substance use type: does not use Lack of Transportation: No Lack of Food: Never True Current Housing: I Have Housing Concerned About Future Housing: No Difficulty Paying Gas/Electric Bills: No Difficulty Paying for Meds: No Currently Unemployed: No Education: High School Diploma/GED Difficulty w/ Childcare or Family Care: No Living arrangements: with family Spiritual care concerns: No <Ally Craft PA-C - Last Filed: 04/28/24 18:05> Exam 2 Narrative: APPEARANCE: No apparent distress. Head: atraumatic. EYES: EOMI, NOSE: Atraumatic NECK: Trachea midline RESPIRATORY: No increased rate of breathing CARDIOVASCULAR: RRR, ABDOMINAL: Tenderness palpation in the left abdomen without guarding rebound no tenderness on the right side MUSCULOSKELETAl: No obvious deformities NEURO: Alert. Moving 4/4 extremities SKIN:: Warm, dry. Normal color PSYCHIATRIC: Normal affect <Jimmy Persaud MD - Last Filed: 04/28/24 21:24> Course Vital Signs Vital signs: Vital Signs Temperature 97.6 F 04/28/24 17:06 Pulse Rate 101 H 04/28/24 17:06 Respiratory Rate 20 04/28/24 17:06 Blood Pressure 142/98 H 04/28/24 17:06 Pulse Oximetry 100 04/28/24 17:06 Oxygen Delivery Room Air 04/28/24 17:06 Temperature 97.6 F 04/28/24 17:06 Pulse Rate 101 H 04/28/24 17:06 Respiratory Rate 20 04/28/24 17:06 Blood Pressure 142/98 H 04/28/24 17:06 Pulse Oximetry 100 04/28/24 17:06 Oxygen Delivery Room Air 04/28/24 17:06 <Ally Craft PA-C - Last Filed: 04/28/24 18:05> Vital Signs Temperature 97.6 F 04/28/24 17:06 Pulse Rate 101 H 04/28/24 17:06 Respiratory Rate 20 04/28/24 17:06 Blood Pressure 142/98 H 04/28/24 17:06 Pulse Oximetry 100 04/28/24 17:06 Oxygen Delivery Room Air 04/28/24 17:06 Temperature 97.6 F 04/28/24 17:06 Pulse Rate 101 H 04/28/24 17:06 Respiratory Rate 20 04/28/24 17:06 Blood Pressure 142/98 H 04/28/24 17:06 Pulse Oximetry 100 04/28/24 17:06 Oxygen Delivery Room Air 04/28/24 17:06 <Jimmy Persaud MD - Last Filed: 04/28/24 21:24> MDM - Abdominal Pain MDM Narrative Medical decision making narrative: MSE by JEMIMA in triage. <Ally Craft PA-C - Last Filed: 04/28/24 18:05> MSE by JEMIMA in triage. -Course: 18-year-old female presenting with left-sided abdominal pain. CT scan showed epiploic appendagitis. This corresponds with the patient's pain. Indeterminate appendiceal thickness but no pain on the right side. Patient declined pain medication Patient be discharged with pain medication prescription. Given return precautions -DDX includes but is not limited to: Colitis, ovarian pathology, epiploic appendagitis, diverticulitis -Co-morbidities complicating care: -Shared decision making / Disposition: -RX <Jimmy Persaud MD - Last Filed: 04/28/24 21:24> Lab Data Result diagrams: 04/28/24 18:21 04/28/24 18:21 <Ally Craft PA-C - Last Filed: 04/28/24 18:05> Labs: Lab Results 04/28/24 04/28/24 04/28/24 Range/Units 17:51 18:21 18:52 WBC 10.7 H (4.5-10.0) K/mm3 RBC 4.33 (4.2-5.4) M/mm3 Hgb 11.3 L (12.0-15.0) g/dL Hct 35.8 L (37.0-47.0) % MCV 82.7 (80-100) fl MCH 26.1 (26-34) pg MCHC 31.6 L (32-36) g/dl RDW 14.7 H (11.5-14.5) % Plt Count 412 H (150-375) k/mm3 MPV 10.4 (7.4-10.4) fl Immature Gran % (Auto) 0.3 (0-0.5) % Neut % (Auto) 67.8 (45.5-73.1) % Lymph % (Auto) 23.6 (18.3-44.2) % [place] % (Auto) 6.7 (2.6-8.5) % Eos % (Auto) 1.0 (0-4.4) % Baso % (Auto) 0.6 (0.2-1.2) % Lymph # (Auto) 2.52 (0.9-3.2) K/mm3 [place] # (Auto) 0.7 H (0.1-0.6) K/mm3 Eos # (Auto) 0.1 (0-0.3) K/mm3 Baso # (Auto) 0.1 (0.0-0.1) K/mm3 Abs Immat Gran (auto) 0.03 (0.00-0.031) K/mm3 Absolute Neuts (auto) 7.2 H (1.3-6.7) K/mm3 Absolute Nucleated RBC 0.000 (0.0-0.012) K/mm3 Nucleated RBC % 0.0 (0.0-0.2) % Sodium 140 (137-145) mmol/L Potassium 4.3 (3.4-5.0) mmol/L Chloride 103 (98-107) mmol/L Carbon Dioxide 24 (22-30) mmol/L Anion Gap 13 H (4-12) mmol/L BUN 8 (7-17) mg/dL Creatinine 0.55 L (0.7-1.0) mg/dL Estim Creat Clear Calc 168 ml/min Estimated GFR > 60 (59 - ) Glucose 89 (65-110) mg/dL Calcium 9.6 (8.4-10.2) mg/dL Total Bilirubin 0.4 (0.2-1.3) mg/dL AST 28 (14-36) U/L ALT 34 (6-35) U/L Alkaline Phosphatase 75 (38-126) U/L Total Protein 8.0 (6.3-8.2) g/dL Albumin 4.7 (3.5-5.1) g/dL Lipase 78 (23-300) U/L Urine Color Yellow (Yellow) Urine Appearance Cloudy H (Clear) Urine pH 6.5 (5.0-9.0) Ur Specific [place] 1.011 (1.001-1.035) Urine Protein Negative (Negative) mg/dL Urine Glucose (UA) Negative (Negative) mg/dL Urine Ketones Negative (Negative) mg/dL Ur Blood (Man) Non-hemolyzed trace H (Negative) Urine Nitrate Negative (Negative) Urine Bilirubin Negative (Negative) Urine Urobilinogen 0.2 (<2.0) mg/dL Leukocyte Esterase Rfl Negative (Negative) CAESAR/UL Urine RBC 0-2 (0-2) /hpf Urine WBC 0-5 (0-3) /hpf Ur Squamous Epith Cells Occasional (Few) /hpf Urine Bacteria 1+ H /hpf Urine Casts 0-2 POC Urine HCG, Qual Negative (Negative) <Ally Craft PA-C - Last Filed: 04/28/24 18:05> Lab Results 04/28/24 04/28/24 04/28/24 Range/Units 17:51 18:21 18:52 WBC 10.7 H (4.5-10.0) K/mm3 RBC 4.33 (4.2-5.4) M/mm3 Hgb 11.3 L (12.0-15.0) g/dL Hct 35.8 L (37.0-47.0) % MCV 82.7 (80-100) fl MCH 26.1 (26-34) pg MCHC 31.6 L (32-36) g/dl RDW 14.7 H (11.5-14.5) % Plt Count 412 H (150-375) k/mm3 MPV 10.4 (7.4-10.4) fl Immature Gran % (Auto) 0.3 (0-0.5) % Neut % (Auto) 67.8 (45.5-73.1) % Lymph % (Auto) 23.6 (18.3-44.2) % [place] % (Auto) 6.7 (2.6-8.5) % Eos % (Auto) 1.0 (0-4.4) % Baso % (Auto) 0.6 (0.2-1.2) % Lymph # (Auto) 2.52 (0.9-3.2) K/mm3 [place] # (Auto) 0.7 H (0.1-0.6) K/mm3 Eos # (Auto) 0.1 (0-0.3) K/mm3 Baso # (Auto) 0.1 (0.0-0.1) K/mm3 Abs Immat Gran (auto) 0.03 (0.00-0.031) K/mm3 Absolute Neuts (auto) 7.2 H (1.3-6.7) K/mm3 Absolute Nucleated RBC 0.000 (0.0-0.012) K/mm3 Nucleated RBC % 0.0 (0.0-0.2) % Sodium 140 (137-145) mmol/L Potassium 4.3 (3.4-5.0) mmol/L Chloride 103 (98-107) mmol/L Carbon Dioxide 24 (22-30) mmol/L Anion Gap 13 H (4-12) mmol/L BUN 8 (7-17) mg/dL Creatinine 0.55 L (0.7-1.0) mg/dL Estim Creat Clear Calc 168 ml/min Estimated GFR > 60 (59 - ) Glucose 89 (65-110) mg/dL Calcium 9.6 (8.4-10.2) mg/dL Total Bilirubin 0.4 (0.2-1.3) mg/dL AST 28 (14-36) U/L ALT 34 (6-35) U/L Alkaline Phosphatase 75 (38-126) U/L Total Protein 8.0 (6.3-8.2) g/dL Albumin 4.7 (3.5-5.1) g/dL Lipase 78 (23-300) U/L Urine Color Yellow (Yellow) Urine Appearance Cloudy H (Clear) Urine pH 6.5 (5.0-9.0) Ur Specific [place] 1.011 (1.001-1.035) Urine Protein Negative (Negative) mg/dL Urine Glucose (UA) Negative (Negative) mg/dL Urine Ketones Negative (Negative) mg/dL Ur Blood (Man) Non-hemolyzed trace H (Negative) Urine Nitrate Negative (Negative) Urine Bilirubin Negative (Negative) Urine Urobilinogen 0.2 (<2.0) mg/dL Leukocyte Esterase Rfl Negative (Negative) CAESAR/UL Urine RBC 0-2 (0-2) /hpf Urine WBC 0-5 (0-3) /hpf Ur Squamous Epith Cells Occasional (Few) /hpf Urine Bacteria 1+ H /hpf Urine Casts 0-2 POC Urine HCG, Qual Negative (Negative) <Jimmy Persaud MD - Last Filed: 04/28/24 21:24> Imaging Data Radiologist's impression: ITS Impressions Pelvis Ultrasound 04/28/24 19:22 IMPRESSION: 1. Poorly visualized uterus. 2. Ovaries not visualized. Abdomen/Pelvis CT 04/28/24 20:38 IMPRESSION: 1. Epiploic appendagitis of the sigmoid colon. 2. Appendiceal diameter of 7 mm, which is indeterminate for appendicitis. Correlate with physical exam. <Ally Craft PA-C - Last Filed: 04/28/24 18:05> ITS Impressions Pelvis Ultrasound 04/28/24 19:22 IMPRESSION: 1. Poorly visualized uterus. 2. Ovaries not visualized. Abdomen/Pelvis CT 04/28/24 20:38 IMPRESSION: 1. Epiploic appendagitis of the sigmoid colon. 2. Appendiceal diameter of 7 mm, which is indeterminate for appendicitis. Correlate with physical exam. <Jimmy Persaud MD - Last Filed: 04/28/24 21:24> Discharge Plan Discharge Clinical Impression: Epiploic appendagitis <Ally Craft PA-C - Last Filed: 04/28/24 18:05> Patient Disposition: Home, Self-Care <Ally Craft PA-C - Last Filed: 04/28/24 18:05> Condition: Stable <ALAINA Fermin Last Filed: 04/28/24 18:05> Instructions: Antibiotic Form, Epiploic Appendagitis (ED) <ALAINA Fermin Last Filed: 04/28/24 18:05> Additional Instructions: Please take Motrin and Tylenol for pain. Please follow-up with your primary care physician. If you develop fevers severe abdominal pain intractable nausea please return to the ED for re-evaluation. <ALAINA Fermin Last Filed: 04/28/24 18:05> Patient Language: Spanish <Ally Craft PA-C - Last Filed: 04/28/24 18:05> Prescriptions: No Action venlafaxine 150 mg tablet extended release 24hr 150 mg PO DAILY Qty: 1 0RF venlafaxine 75 mg tablet extended release 24hr 75 mg PO DAILY Qty: 1 0RF aripiprazole 2 mg tablet 2 mg PO DAILY Qty: 1 0RF <Ally Craft PA-C - Last Filed: 04/28/24 18:05> Follow-up/Referrals: Shailesh Marsh DO [Primary Care Provider] - <ALAINA Fermin Last Filed: 04/28/24 18:05>
[2024-04-28 18:30] LABS: Basophils Absolute Auto 0.1 K/mm3 (0.0-0.1); Basophils Percent Auto 0.6 % (0.2-1.2); Eosinophils Absolute Auto 0.1 K/mm3 (0-0.3); Hematocrit 35.8 % (37.0-47.0); Hemoglobin 11.3 g/dL (12.0-15.0); Immature Granulocyte Absolute 0.03 K/mm3 (0.00-0.031); Immature Granulocyte Percent A 0.3 % (0-0.5); Lymphocytes Absolute Auto 2.52 K/mm3 (0.9-3.2); Lymphocytes Percent Auto 23.6 % (18.3-44.2); Mean Corpuscular HGB Conc 31.6 g/dl (32-36); Mean Corpuscular Hemoglobin 26.1 pg (26-34); Mean Corpuscular Volume 82.7 fl (80-100); Mean Platelet Volume 10.4 fl (7.4-10.4); Monocytes Absolute Auto 0.7 K/mm3 (0.1-0.6); Monocytes Percent Auto 6.7 % (2.6-8.5); Neutrophils Absolute Auto 7.2 K/mm3 (1.3-6.7); Neutrophils Percent Auto 67.8 % (45.5-73.1); Platelet Count Result 412 k/mm3 (150-375); Red Blood Count 4.33 M/mm3 (4.2-5.4); Red Cell Distribution Width 14.7 % (11.5-14.5); White Blood Count 10.7 K/mm3 (4.5-10.0)
[2024-04-28 18:33] LABS: Add Urine Microscopic? YES; Appearance Urine Cloudy (Clear); Bacteria Urine 1+ /hpf; Bilirubin Urine Negative (Negative); Blood Urine Non-Hemolyzed Trace (Negative); Color Urine Yellow (Yellow); Glucose Urine UA Negative (Negative); Ketones Urine Negative (Negative); Leukocyte Esterase Ur Negative LEU/UL (Negative); Nitrate Urine Negative (Negative); Non Pathogenic Casts 0-2; Protein Urine Negative (Negative); RBC Urine 0-2 /hpf (0-2); Specific Grav Ur 1.011 (1.001-1.035); Squamous Epithelial Cell Urine Occasional /hpf (Few); Urobilinogen Urine 0.2 mg/dL (<2.0); WBC Urine 0-5 /hpf (0-3); pH Urine 6.5 (5.0-9.0)
[2024-04-28 18:43] LABS: Alanine Aminotransferase 34 U/L (6-35); Albumin Level 4.7 g/dL (3.5-5.1); Alkaline Phosphatase 75 U/L (38-126); Anion Gap 13 mmol/L (4-12); Aspartate Amino Transferase 28 U/L (14-36); Bilirubin,Total 0.4 mg/dL (0.2-1.3); Blood Urea Nitrogen 8 mg/dL (7-17); Calcium 9.6 mg/dL (8.4-10.2); Carbon Dioxide 24 mmol/L (22-30); Chloride 103 mmol/L (98-107); Estimated CRCL calculation 168 ml/min; Estimated Glomerular Filt Rate > 60; Glucose 89 mg/dL (65-110); Lipase 78 U/L (23-300); Potassium 4.3 mmol/L (3.4-5.0); Sodium 140 mmol/L (137-145)
[2024-04-28 18:54] LABS: BEDSIDEPREGUCG Negative (Negative)
[2024-04-28] MEDS: FAMOTIDINE 20 MG/2 ML VIAL IV PUSH (19:18)
[2024-04-28] MEDS: ACETAMINOPHEN 500 MG TABLET 1000 MG PO (19:30)
--- OUTSIDE RECORDS SUMMARY | 2024-04-28 19:40 | XMS_ITS | Continuity of Care Document ---
Author Name [facility] Organization [facility] Care Team Providers Care Search Specialist Name Role Phone [facility] Unavailable Unavailable Vital Signs Combined list of inpatient and outpatient Vital Signs from [facility] of [facility] and [facility], ranging from 12 months to all on record, depending upon the facility. Vital Sign Value Date Comments Source No data available for this section Ambulatory Pharmacy Encounters Combined list of: 1) Encounters from [facility] facilities going back up to thelast 18 months. 2) Encounters from the [facility] facilities going back up to 280 months. Location Location Details Encounter Type Encounter Number Reason For Visit Attending Provider ADM Date DC Date Status Disposition Source Ambulator y Pharmacy Lifetime Pharmacy [id number] 01/23 Ambulat ory Pharmac y Procedures Combined list of: 1) Procedures from [facility] facilities going back up to thelast 18 months, not all [place] non-surgical procedures are included; 2) All procedures from the [facility] facilities. Procedure Procedure Type Code Date Perfomer Comments Sourc e No data available for this section Ambulatory P harmacy Assessment and Plan Combined list of future care activities from [facility] facilities (e.g., assessment and plan notes, appointments, orders, and referrals). Additional future care activities may be listed in the Plan of Care section. Result Assessment and Plan Date Source Assessment and Plan No data available for this section 04/29/2024 Ambulatory Pharmacy Functional Status Combined list of recent functional and cognitive assessments recorded at [facility] Functional [place] Measurement (FIM) Scale: 1 = Total Assistance (Subject = 0% +), 2 = Maximal Assistance (Subject = 25% +), 3 = Moderate Assistance (Subject = 50% +), 4 = Minimal Assistance (Subject = 75% +), 5 = Supervision, 6 = Modified [place] (Device), 7 = Complete [place] (Timely, Safely). Assessment Date/Time Source Assessment Type Assessment Skill Assessment Score Assessment Details No data available for this section
--- OUTSIDE RECORDS SUMMARY | 2024-04-28 19:40 | XMS_ITS | Clinical Summary ---
Author Organization [facility] Address [address] [place] [address]. [place] [address] [place] [address] Care Team Providers Care Track Dresser Name Role Phone Kristopher Riley PA-C Primary Care Provider [phone] Allergies No known active allergies Medications venlafaxine 37.5 MG tablet Take 1 tablet (37.5 mg total) by mouth 2 (two) times daily with meals. Active ondansetron (ZOFRAN-ODT) 4 MG disintegrating tablet Take 1 tablet (4 mg total) by mouth every 8 (eight) hours as needed for Nausea. 20 tablet 3 Active Family History Medical History Relation Comments Cancer Maternal Grandmother Diabetes Maternal Grandmother Relation Status Comments Maternal Grandmother Social History Tobacco Use Types Packs/Day Years Used Date Smoking Tobacco: Never Smokeless Tobacco: Never Tobacco Cessation:Counseling Given: Not Answered Alcohol Use Standard Drinks/Week Comments Yes 0 (1 standard drink = 0.6 oz pur e alcohol) Social AUDIT-C Answer Date Recorded Frequency of Alcohol Consumption Never 10/14/2018 Average Number of Drinks Not on file 019 Frequency of Binge Drinking Not on file 09/30 Comments No Sex and Gender Information Value Date Recorded Sex Assigned at Not on file Legal Sex Female 7:20 PM CDT Gender Identity Not on file Sexual Orientation Not on file Last Filed Vital Signs Vital Sign Reading Time Taken Comments Blood Pressure 138/88 02/25/2023 7:50 PM WELDER TECH Pulse 90 02/25/2023 7:50 PM WELDER TECH Temperature 36.8 ??C (98.2 ??F) 02/25/2023 7:50 PM CS T Respiratory Rate 18 02/25/2023 7:50 PM WELDER TECH Oxygen Saturation 100% 02/25/2023 7:50 PM WELDER TECH Inhaled Oxygen Concentration - - Weight 79.4 kg (175 lb) 02/25/2023 7:50 PM WELDER TECH Height 167.6 cm (5' 6 ) 02/25/2023 7:50 PM WELDER TECH Body Mass Index 28.25 02/25/2023 7:50 PM WELDER TECH Plan of Treatment Health Maintenance Due Date Last Done Comments Annual Physical 11/03/2006 DTaP, Tdap and Td Vaccines (6 - Tdap) 11/03/2014 11/07/2007, 03/16/2005, 05/21/2004, Additional history exists Meningococcal B Vaccine (1 of 2 - Standard) 2019 Hepatitis C 11/03/2021 Hepatitis B Vaccines (1 of 3 - 19+ 3-dose series) 11/03/2022 COVID-19 Vaccine ( - season) 2023 Influenza Adult (#1) 2024 03/11/2013 Meningococcal Vaccine Aged Out 11/10/2014 No danyelle blake eligible based on patient's age to complete this topic HPV Vaccines Completed 08/07/2019, 11/12/2017 Pneumococcal Vaccine: Pediatrics (0 to 5 Years) and At-Risk Patients (6 to 64 Years) Aged Out No longer eligible based on patient's age to complete this topic RSV Immunizations Under 20 Months Aged Out No longer eligible based on patient's age to complete this topic Insurance [facility] Care Teams Track Dresser Relationship Specialty Start Date End Date Kristopher Riley PASherleyC [address] [address] PCP - General PHYSICIAN MEDICAID BILLER 07/10/21
[2024-04-28 21:31] VITALS: BP 132/80; PULSE 94; RESP 15; O2SAT 100
== END 2024-04-28 21:35 | disposition home or self-care (01) ==
PROVIDERS: Physician Assistant; Emergency Provider Emergency Medicine; PCP Internal Medicine
DX: K63.89 Other specified diseases of intestine (principal); F17.290 Nicotine dependence, other tobacco product, uncomplicated
CPT/HCPCS: 36415; 74177; 76856; 80053; 81001; 81025; 83690; 85025; 96374; 99284; A9270; Q9967

== ENCOUNTER 2025-02-05 17:12 | Emergency (ER) | payer OTHER, SELFPAY ==
--- OUTSIDE RECORDS SUMMARY | 2024-10-29 02:20 | XMS_ITS ---
Author Organization [facility] Address [address] [place] [address] Care Team Providers Care Finishing Area Operator Name Role Phone Florina Odonnell Primary Care Provider [phone] REASON FOR VISIT 3 Month Psych F/U & Med Refill Medications Medication SIG (Take, Route, Frequency, Duration) Notes Start Date End Date Status Effexor XR 150 MG 1 capsule with food Orally Once a day; Duration: 14 days Active Effexor XR 75 MG 1 capsule with food Orally Once a day; Duration: 14 days 05/26/2022 Active buPROPion HCl ER (XL) 150 MG 1 tablet in the morning Orally Once a day; Duration: 14 days 05/30/2024 Active Nexplanon 68 MG as directed Subcutaneous Not-Taking Social History Sex Assigned At : Social History Observation Description Sex Assigned At Female Encounters Encounter Location Date Provider Diagnosis [facility] [place] [address] 10/29/2024 Florina Odonnell Major depressive disorder, recurrent, moderate F33.1 and Generalized anxiety disorder F41.1 Assessments Encounter Date Diagnosis (ICD Code) Assessment Notes Treatment Notes Treatment Clinical Notes Section Notes 10/29/2024 Major depressive disorder, recurrent, moderate (ICD-10 - F33.1) 10/29/2024 Generalized anxiety disorder (ICD-10 - F41.1) Plan Of Treatment No Information Progress Notes * Angelique LINB:2005 ([age] yo F)Acc No.[id number]:10/29/2024 UNLOCKED PROGRESS NOTE Patient: Pedro QUEZADA Provider: Geno Odonnell DNP, CARLI, JEFFERY :2005 A ge:18 Y S ex:Female Date:10/29/2024 Address:[address] [place], [place] [id number] Subjective: * Chief Complaints: * 1 . 3 Month Psych F/U & Med Refill. * Medical History: * Medications: T aking Effexor XR 150 MG Capsule Extended Release 24 Hour 1 capsule with food Orally Once a day , Taking Effexor XR 75 MG Capsule Extended Release 24 Hour 1 capsule with food Orally Once a day , Taking buPROPion HCl ER (XL) 150 MG Tablet Extended Release 24 Hour 1 tablet in the morning Orally Once a day , Not-Taking Nexplanon 68 MG Implant as directed Subcutaneous Objective: * Vitals: Assessment: * Assessment: 1. M ajor depressive disorder, recurrent, moderate - F33.1 (Primary) 2 . G eneralized anxiety disorder - F41.1 Plan: * Treatment: * * Electronic signature of Josephine Odonnell on 02/05/2025 at 09:10 PM PROCESS SAFETY ENGINEERING TECHNOLOGIST Sign off status: Pending * Provider: Geno Odonnell DNP, CARLI, LAB RN Date: 0 10/29/2024 Generated for Printing/Faxing/eTransmitting on: 1 04/07/2024 09:10 PM PROCESS SAFETY ENGINEERING TECHNOLOGIST
--- OUTSIDE RECORDS SUMMARY | 2025-02-04 12:20 | XMS_ITS | Encounter Summary ---
Author Organization [facility] Address [address] [place] [address] Care Team Providers Care Project Associate Name Role Phone Unavailable Primary Care Provider Unavailabl e Reason for Visit * Reason Comments Upper Respiratory Symptoms Patient is he re for URI symptoms since . Cough, sore throat, right lymph node swollen, right ear pain, loss of voice, green mucus production Encounter Details Date Type Department Care Team (Late st Contact Info) Description 02/04/2025 12:20 PM EMPLOYEE RELATIONS MANAGER Office Visit [facility] [place] [id number] [address] [phone] Kristopher Riley PA-C [address] [place] [address] URI, acute (Primary Dx); Acute cough; Sore throat Social History Tobacco Use Types Packs/Day Years Used Date Smoking Tobacco: Never Comments:Vape/moderate smoke r Alcohol Use Standard Drinks/Week Comments Not Currently 12 (1 standard drink = 0.6 oz pu re alcohol) Comments No Sex and Gender Information Value Date Recorded Sex Assigned at Female 05/14/2024 2:32 PM EMPLOYEE RELATIONS MANAGER Legal Sex Female 7:52 AM EMPLOYEE RELATIONS MANAGER Gender Identity Female 05/14/2024 2:32 PM EMPLOYEE RELATIONS MANAGER Sexual Orientation Straight 05/16/2024 10 :18 AM EMPLOYEE RELATIONS MANAGER documented as of this encounter Last Filed Vital Signs Vital Sign Reading Time Taken Comments Blood Pressure 130/66 02/04/2025 11:58 AM EMPLOYEE RELATIONS MANAGER Pulse 88 02/04/2025 11:58 AM EMPLOYEE RELATIONS MANAGER Temperature 36.8 C (98.3 F) 02/04/2025 11:58 AM EMPLOYEE RELATIONS MANAGER Respiratory Rate - - Oxygen Saturation 96% 02/04/2025 11:58 AM EMPLOYEE RELATIONS MANAGER Inhaled Oxygen Concentration - - Weight 98.4 kg (217 lb) 02/04/2025 11:58 AM EMPLOYEE RELATIONS MANAGER Height 167.6 cm (5' 6) 02/04/2025 11:58 AM EMPLOYEE RELATIONS MANAGER Body Mass Index 35.02 02/04/2025 11:58 AM EMPLOYEE RELATIONS MANAGER documented in this encounter Progress Notes * Kristopher Riley PA-C - 02/05/2025 8:12 AM CST Assessment & Plan 1. Upper respiratory infection: - Symptoms include sore throat, swollen lymph nodes, and loss of voice. Symptoms began on and have progressively worsened, with significant discomfort at night. - Examination was unremarkable. Tests for COVID-19, influenza, and strep returned negative, suggesting a viral etiology. - Advised to take ibuprofen to reduce inflammation and pain. Ezde-vhe-uvtvyqf cough drops or OTC meds are recommended for cough management. Rest, drink plenty of fluids, and elevate the head while sleeping to reduce coughing. - If the condition does not improve by early next week, contact the office for further evaluation. Subjective Upper Respiratory Symptoms (Patient is here for URI symptoms since . Cough, sore throat, right lymph node swollen, right ear pain, loss of voice, green mucus production) History of Present Illness The patient is a 19-year-old female who presents today with upper respiratory symptoms. She reports the onset of a swollen gland on 01/29/2025, which has persisted. Despite the swelling, she felt well enough to participate in a soccer tournament in [place] from 01/30/2025 to 02/01/2025. During this period, she experienced a significant decline in her health, characterized by complete voice loss, even in the absence of vocal strain. She also developed a sore throat, which she attempted to manage with [id number]-[id number] cold and flu medications. Her condition has progressively worsened, culminating in a sleepless night due to discomfort. She is uncertain about the presence of a feverbut notes a persistent feeling of coldness. She experiences difficulty swallowing, particularly at n ight, which has led to a decreased appetite. The severity of her symptoms fluctuates throughout theday, with nighttime being the most challenging. She quantifies her pain as a 5 on a scale of 1 to 10, describing it as manageable but uncomfortable. She has attempted to alleviate her symptoms with Tylenol and Mucinex, but these have not provided relief. She also reports ear discomfort and finds itpainful to open her mouth. She has been exposed to sick individuals in her environment, including apartner who frequently coughs and vapes. She underwent a tonsillectomy due to recurrent strep infections. Sleep: Reports difficulty sleeping due to discomfort. PAST SURGICAL HISTORY: Tonsillectomy due to recurrent strep infections. Review of Systems Constitutional: Positive for fatigue. Negative for fever. HENT: Positive for ear pain and sore throat. Negative for congestion, rhinorrhea, sinus pressure and sneezing. Eyes: Negative for itching. Respiratory: Positive for cough. Negative for wheezing. Neurological: Negative for headaches. Answers submitted by the patient for this visit: Allergy Questionnaire (Submitted on 02/04/2025) Chief Complaint: Allergies hoarse voice: Yes Itchy Nose: No plugged ear sensation: Yes swollen glands: Yes Frequency : constantly Duration: 7 Days What allergy treatments have you tried? : antihistamines, cough syrup Level of improvement with treatment?: no relief Have you had allergy testing done?: No Objective Blood pressure 130/66, pulse 88, temperature 98.3 ??F (36.8 ??C), temperature source Temporal, height 5' 6 (1.676 m), weight 98.4 kg (217 lb), SpO2 96%. Physical Exam Physical Exam Constitutional: Appearance: Normal appearance. HENT: Head: Normocephalic and atraumatic. Right Ear: Tympanic membrane, ear canal and external ear normal. Left Ear: Tympanic membrane, ear canal and external ear normal. Mouth/Throat: Mouth: Mucous membranes are moist. Pharynx: Posterior oropharyngeal erythema (slight) present. Cardiovascular: Rate and Rhythm: Normal rate and regular rhythm. Heart sounds: Normal heart sounds. Pulmonary: Breath sounds: Normal breath sounds. Skin: General: Skin is warm and dry. Neurological: Mental Status: She is alert. Mental status is at baseline. Psychiatric: Mood and Affect: Mood normal. Results Labs - COVID-19 test: Negative - Influenza test: Negative - Strep test: Negative Medical concerns were addressed in detail. Information, recommendations, and options were outlined to patient for informed decision making. All questions were answered and patient voiced understanding. Medication indication, side effects, benefits, and expected response reviewed with patient. See AVS for further instruction. Patient advised to followup per recommendations or sooner if needed and may contact me or the office via phone or [facility]. Please be advised that parts of this note may have been dictated via Ala-Septic software to account forany grammatical errors. Kristopher Riley PA-C The author of this note, patient (or authorized abrasives sales representative), and all other persons present consent to the audio recording of this visit for charting documentation purposes. OYEE RELATIONS MANAGER documented in this encounter Plan of Treatment Upcoming Encounters Date Type Department Care Team (Late st Contact Info) Description 11/20/2025 1:40 PM CDT Office Visit [facility] [address] [phone] Kristopher Riley PA-C [address] [place] [phone] documented as of this encounter Procedures Procedure Name Priority Date/Time Associated Diagnosis Comments POC INFLUENZA A/B AND COVID-19 ANTIGENS Routine 02/04/2025 12:29 PM EMPLOYEE RELATIONS MANAGER Acute cough Sore throat POC RAPID STREP A ANTIGEN Routine 02/04/2025 12:21 PM EMPLOYEE RELATIONS MANAGER Acute cough Sore throat documented in this encounter Results * POC INFLUENZA A/B AND COVID-19 ANTIGENS (02/04/2025 12:29 PM EMPLOYEE RELATIONS MANAGER) INFLUENZA A AG POC Not Detected Not Detected [facility] INFLUENZA B AG POC Not Detected Not Detected [facility] COVID-19 ANTIGEN POC Presumptively Negative Presumptively Negative [facility] INTERNAL KIT QC POC Pass Pass [facility] KIT LOT NUMBER POC [id number] [facility] [place] KIT EXP DATE POC 05/20/25 [facility] [place] Upper Respiratory 02/04/2025 12:29 PM EMPLOYEE RELATIONS MANAGER Kristopher Riley PA-C POINT OF CARE TESTING Final Result [facility] CLIA# [id number] [address] [phone] * POC RAPID STREP A ANTIGEN (02/04/2025 12:21 PM EMPLOYEE RELATIONS MANAGER) RAPID STREP POC Negative Negative, Indeterminate [facility] PRIMARY [facility] [place] INTERNAL KIT QC POC Pass Pass [facility] [place] KIT LOT NUMBER POC [id number] [facility] [place] KIT EXP DATE POC 09/02/25 [facility] [place] READ METHOD POC Visual [facility] [place] Upper Respiratory SPECIMEN FROM THROAT / Unknown 02/04/2025 12:21 PM EMPLOYEE RELATIONS MANAGER Kristopher Riley PA-C POINT OF CARE TESTING Final Result [facility] CLIA# [id number] [address] [phone] documented in this encounter Visit Diagnoses Diagnosis URI, acute- Primary Acute upper respiratory infections of unspecified site Acute cough Sore throat Acute pharyngitis documented in this encounter
[2025-02-05 17:19] VITALS: BP 141/85; PULSE 95; RESP 18; TEMP 36.4; O2SAT 100
--- NOTE | 2025-02-05 17:19 | ED_ITS ---
HPI - URI/Sore Throat General Chief Complaint: Upper Respiratory Infection Stated Complaint: Sore throat Time Seen by Provider: 02/05/25 17:19 Source: patient, RN notes reviewed and old records reviewed Mode of arrival: ambulatory Limitations: no limitations History of Present Illness HPI Narrative: 19-year-old female presents to the [facility] with a swollen lymph node and soreness to the right side of her neck that started on , 1 week ago. Six days ago started with a sore throat, cough and loss of for voice. States cough and laryngitis have improved Onset (ago): day(s) (6-7) Treatments prior to arrival: acetaminophen, ibuprofen and cold medicine Related Data Home Medications ?Medication ?Instructions ?Recorded ?Confirmed ?Last Taken ?Type bupropion HCl 300 mg 24 hr tablet, mg PO 02/05/25 Unk nown History extended release venlafaxine 150 mg mg PO 02/05/25 Unknown Hist ory capsule,extended release 24 hr venlafaxine 75 mg capsule,extended mg PO 02/05/25 Unk nown History release 24 hr Allergies Allergy/AdvReac Type Severity Reaction Status Date / Time No Known Allergies Allergy Verified 02/05/25 17:22 Review of Systems Review of Systems: All systems reviewed & are unremarkable except as noted in HPI and below Constitutional: Constitutional: Reports no additional constitutional complaints ENT: Reports as per HPI Cardiovascular: Cardiovascular: Reports no additional cardiovascular complaints, Denies chest pain and Denies dyspnea Respiratory: Respiratory: Reports no additional respiratory complaints, Denies chest congestion, Denies cough and Denies dyspnea Musculoskeletal: Musculoskeletal: Reports no additional musculoskeletal complaints Integumentary/Breasts: Skin/Breast: Reports system reviewed and no additional complaints, except as docu PMFSH Past Medical History Medical History Depression Surgical History Surgical History History of tonsillectomy Family History Family History Unknown Cancer Social History Social History Tobacco type: e-cigarettes/vaping Alcohol intake: current Alcohol use details: occasional Substance use: unknown Substance use type: does not use Lack of Transportation: No Lack of Food: Never True Current Housing: I Have Housing Concerned About Future Housing: No Difficulty Paying Gas/Electric Bills: No Difficulty Paying for Meds: No Currently Unemployed: No Education: High School Diploma/GED Difficulty w/ Childcare or Family Care: No Living arrangements: with family Spiritual care concerns: No Comments At the time of my signature, I reviewed and agree with the nursing past medical, surgical, social, and family history. There is no relevant family history pertinent to the patient complaint. Exam Const: General: cooperative, healthy appearing, comfortable, no acute distress, well developed, alert and well nourished Nutritional Appearance: well nourished and obese Orientation/consciousness: patient oriented x3 Limitations: no limitations HENMT: Head: normal to inspection Ears: hearing grossly normal bilaterally, external ears normal, TM's normal bilaterally, EAC's normal, mastoids normal and no periauricular adenopathy Face/Nose/Sinus: Normal external nose present, Normal nares present and No nasal discharge present Mouth: Yes Normal oral and palatal mucosa present, Yes lip normal, Yes tongue normal and Yes moist mucous membranes Throat: posterior oropharynx normal, uvula midline, postnasal drainage, tonsils absent and no uvular edema Eyes: General: appearance normal, both eyes and all related structures Alignment and Position: alignment normal Neck: Neck: normal visual inspection, full ROM and no meningeal signs Other: Very mild lymphadenopathy the right side of neck, soft, tender but movable. Chest: Chest palpation & inspection: normal inspection of the chest Resp: Effort & Inspection: normal respiratory effort and able to speak in complete sentences Auscultation: clear to auscultation bilaterally, no crackles, no rales, no rhonchi and no wheezes Cardio: Rate: regular rate Skin: General skin exam: normal color and no rashes or lesions noted Neuro: General: patient oriented x3, gait normal, moves all extremities and no meningeal signs Cognition (Neuro): normal cognition Speech: normal speech Gait exam (Neuro): Normal gait present Extrem: General: normal to inspection, full ROM, capillary refill normal and normal gait Psych: Appearance: grossly normal and well kempt Mental Status: mental status grossly normal Speech and movement: Normal speech and movement present and Clear speech present Affect: normal affect Attitude: cooperative Course Course Level of Care: Express Care Visit Vital Signs Vital signs: Vital Signs Temperature 97.6 F 02/05/25 17:19 Pulse Rate 95 02/05/25 17:19 Respiratory Rate 18 02/05/25 17:19 Blood Pressure 141/85 H 02/05/25 17:19 Pulse Oximetry 100 02/05/25 17:19 Oxygen Delivery Room Air 02/05/25 17:19 Temperature 97.6 F 02/05/25 17:19 Pulse Rate 95 02/05/25 17:19 Respiratory Rate 18 02/05/25 17:19 Blood Pressure 141/85 H 02/05/25 17:19 Pulse Oximetry 100 02/05/25 17:19 Oxygen Delivery Room Air 02/05/25 17:19 Reviewed MDM - URI/Sore Throat MDM Narrative Medical decision making narrative: Patient sitting in exam. Patient is nontoxic, vitals stable. Patient presents with URI symptoms for 6-7 days. Strep test negative. Patient with some postnasal drainage. It a soft movable lymph node to the right neck. Patient is appropriate for outpatient treatment with close follow Discharge instructions reviewed with patient, as well as provided in writing per nursing staff. The instructions also include specific and strict return/GO TO THE ER as well as f/u information. All questions have been answered, and the patient deny any further questions with discharge and discharge plan. Some parts of this dictation were generated by voice recognition software and may contain typographical and/or grammatical inaccuracies. Differential Diagnosis Differential diagnosis: Likely upper respiratory infection, otitis media, sinusitis, viral infection, bronchitis, influenza and pharyngitis Lab Data Labs: Lab Results 02/05/25 Range/Units 17:33 POC Grp A Strep Screen Negative (Negative) Reviewed Critical Care Time Critical Care Time Critical Care Time: No Discharge Plan Discharge Clinical Impression: Upper respiratory infection, Pharyngitis Patient Disposition: Home Condition: Stable Instructions: Antibiotic Form, Pharyngitis (ED), Upper Respiratory Infection (DC), Postnasal Drip (DC) Additional Instructions: Your rapid strep swab was negative today at [facility]. A throat culture will be sent to the laboratory for further testing. If the test is positive, you will receive a phone call within 48 hours and an appropriate antibiotic will be initiated at that time. Your symptoms are likely due to a viral illness, which is not treated with antibiotics. Typically viral infections last 7-10 days, can linger for couple of weeks. It is very important to treat your symptoms. Drink plenty of water, Gatorade, Pedialyte, ice pops or Jell-O. -Alternate Tylenol and Motrin per package directions for fever or pain. You can alternate every 4 hours -Antihistamine medication such as Zyrtec/Claritin/Linda during the day can help improve symptoms. -doing daily nasal irrigations can help relieve pressure your sinuses. Things like a Neti pot -Use Flonase twice a day for 5 days then daily to help reduce the inflammation and dry up your sinuses. -You can also use Mucinex. Be sure to drink plenty of water with this medication at least 8 ounces with every dose and it is important to drink 8 to 10 glasses of water per day. Water is a natural decongestant -Eat and drink things that are easy to swallow, like tea or soup, or popsicles. -Oral rinses such as: Salt water gargles and/or may use topical anesthetic (eg. Chloraseptic spray) or lozenges to relieve dryness or throat pain). -Frequent hand washing or hand home economics extension worker is one of the best ways to prevent spread of infection. -Using a vaporizer or humidifier at night will also help thin secretions and help with coughing up phlegm. -Follow up with primary care provider in 7-10 days if condition is not improving - For new or worsening symptoms go directly to the nearest ER Patient Language: Bermudian Prescriptions: New methylprednisolone [Medrol (Yifan)] 4 mg tablets,dose pack See Rx Instructions PO .COMPLEX Qty: 21 0RF Rx Instructions: orally per package directions No Action venlafaxine 75 mg capsule,extended release 24hr PO venlafaxine 150 mg capsule,extended release 24hr PO bupropion HCl 300 mg tablet extended release 24 hr PO Follow-up/Referrals: PHYSICIAN,MANAGER DIABETES [Primary Care Provider, Internal Medicine] Stand Alone Forms: Work/School Release IP Time of Disposition: 17:35
[2025-02-05 17:35] LABS: EDSTREPNEGPOS1 Negative (Negative)
--- OUTSIDE RECORDS SUMMARY | 2025-02-05 21:10 | XMS_ITS | Clinical Summary ---
Author Organization [facility] Address [facility] [place] [address] Care Team Providers Care Customer Sales Specialist Name Role Phone None, Provider MD Primary Care Provider Unavaila ble Allergies No known active allergies Medications buPROPion XL (WELLBUTRIN XL) 300 MG 24 hr tablet Take 1 tablet (300 mg total) by mouth daily. 5 Active venlafaxine XR (EFFEXOR-XR) 150 MG 24 hr capsule Take 1 capsule (150 mg total) by mouth daily. with food Active venlafaxine XR (EFFEXOR-XR) 75 MG 24 hr capsule Take 1 capsule (75 mg total) by mouth daily. with food Active naproxen (NAPROSYN) 500 MG tabletIndications :Burn from the sun,Sunburn, blistering Take 1 tablet (500 mg total) by mouth 2 (two) times daily with meals. 60 tablet Active silver sulfADIAZINE (SILVADENE) 1 % creamIndications: Burn from the sun,Sunburn, blistering Apply topically daily. 85 g 1 Active Active Problems Problem Noted Date Diagnosed Date Generalized anxiety disorder 11/25/2024 Major depressive disorder, recurrent, moderate 0 11/25/2024 Tobacco user 11/25/2024 Anemia 11/25/2024 Contusion of left wrist 11/25/2024 Current every day vaping 11/25/2024 Epiploic appendagitis 11/25/2024 Hyperglycemia 11/25/2024 Iron deficiency anemia 11/25/2024 Low back pain 11/25/2024 Obesity (BMI 30-39.9) 11/25/2024 Vomiting 03/11/2013 Encounters Date Type Department Care Team Description 11/25/2024 11:00 AM CDT Office Visit [facility] [address] [place] [address] Edyta Shore APRN Valerio (Severe sunburn on back and shoulders X 4 days) 11/25/2024 Telephone [facility] DEFAULT None, Provider, Letter 11/25/2024 Travel from Last 3 Months Immunizations Immunization Administration Dates Next Due Dtap 11/07/2007,03/16/2005,05/21/2004 ,03/11/2004,01/08/2004 HPV GARDASIL 9-VALENT 08/07/2019,11/12/2017 Influenza (Generic) 03/11/2013 MMR 11/07/2007,11/14/2004 Menactra 11/10/2014 Family History Medical History Relation Comments Cancer Maternal Grandmother Diabetes Maternal Grandmother Relation Status Comments Maternal Grandmother Social History Tobacco Use Types Packs/Day Years Used Date Smoking Tobacco: Never Smokeless Tobacco: Never Tobacco Cessation:Counseling Given: No Alcohol Use Standard Drinks/Week Comments Yes 0 (1 standard drink = 0.6 oz pur e alcohol) Social AUDIT-C Answer Date Recorded Frequency of Alcohol Consumption Never 10/14/2018 Average Number of Drinks Not on file 019 Frequency of Binge Drinking Not on file 09/30 Comments No Sex and Gender Information Value Date Recorded Sex Assigned at Female 07/06/2024 12:45 AM CDT Legal Sex Female 7:20 PM CDT Gender Identity Female 07/06/2024 12:45 AM CDT Sexual Orientation Not on file Last Filed Vital Signs Vital Sign Reading Time Taken Comments Blood Pressure 142/80 11/25/2024 11:21 AM CDT pt left before recheck Pulse 94 11/25/2024 11:21 AM CDT Temperature 36.3 C (97.4 F) 11/25/2024 11:21 AM CDT Respiratory Rate 20 11/25/2024 11:2 1 AM CDT Oxygen Saturation 98% 11/25/2024 11: 21 AM CDT Inhaled Oxygen Concentration - - Weight 103 kg (227 lb) 11/25/2024 11:21 AM CDT Height 167.6 cm (5' 6) 11/25/2024 11:2 1 AM CDT Body Mass Index 36.64 11/25/2024 11:21 AM CDT Plan of Treatment Health Maintenance Due Date Last Done Comments Cervical Cancer Screening Pap Smear (Age 21 to 29) Every 3 Years 2003 Cervical Cancer Screening 2003 Annual Physical 11/03/2006 Meningococcal B Vaccine (2 of 2 - Bexsero SCDM 2-dose series) 07/07/2021 01/06/2021 Hepatitis C 11/03/2021 PHQ-2 (Physician [place]) 04/02/2024 DTaP, Tdap and Td Vaccines (7 - Td or Tdap) 10/28/2024 10/28/2014, 11/07/2007, 03/16/2005, Additional history exists COVID-19 Vaccine ( season) 2024 Influenza Adult (#1) 2024 01/06/2021, 03/11/2013, 01/29/2012, Additional history exists Hepatitis B Vaccines Completed 08/20/2004, 05/21/2004, 2003 Pneumococcal Vaccine: Pediatrics (0 to 5 Years) and At-Risk Patients (6 to 49 Years) Aged Out 11/14/2004, 05/21/2004, 03/11/2004, Additional history exists No longer eligible based on patient's age to complete this topic Hepatitis A Vaccines Completed 10/28/2014, 10/16/19 09 HPV Vaccines Completed 08/07/2019, 11/12/2017 Meningococcal Vaccine Completed 01/06/2021, 015 RSV Immunizations Under 20 Months Aged Out No longer eligible based on patient's age to complete this topic Insurance [facility] Care Teams Customer Sales Specialist Relationship Specialty Start Date End Date None, Provider, MD PCP - General UNKNOWN PHYSICIAN SPECIALTY 07/06/24
--- OUTSIDE RECORDS SUMMARY | 2025-02-05 21:10 | XMS_ITS | Clinical Summary ---
Author Organization [facility] Address [address] [place] [address] Care Team Providers Care Security Shift Supervisor Name Role Phone Kristopher Riley Primary Care Provider Allergies No known active allergies Medications gabapentin (NEURONTIN) 100 mg capsule Take 1 capsule (100 mg total) by mouth 3 (three) times a day 07/06/2024 Active buPROPion XL (WELLBUTRIN XL) 150 mg 24 hr tablet Take 1 tablet (150 mg total) by mouth every morning 05/30/2024 Active Effexor XR 150 mg 24 hr capsule Take 1 capsule (150 mg total) by mouth daily Active Effexor XR 75 mg 24 hr capsule Take 1 capsule (75 mg total) by mouth daily 05/26/2022 Active cyclobenzaprine (FLEXERIL) 10 mg tablet Take 1 tablet (10 mg total) by mouth 3 (three) times a day as needed for muscle spasms 15 tablet 07/07/2024 Active Social History Tobacco Use Types Packs/Day Years Used Date Smoking Tobacco: Never Assessed Personal Safety Answer Date Recorded Have you ever been in or are you currently in a harmful physical or emotional relationship or is someone making you feel afraid or unsafe? 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 Gender Identity Not on file Sexual Orientation Not on file Last Filed Vital Signs Vital Sign Reading Time Taken Comments Blood Pressure 140/85 07/07/2024 10:42 AM CDT Pulse 71 07/07/2024 10:42 AM CDT Temperature 36.7 C (98.1 F) 07/07/2024 8:18 AM CDT Respiratory Rate 18 07/07/2024 10:4 2 AM CDT Oxygen Saturation 97% 07/07/2024 10: 42 AM CDT Inhaled Oxygen Concentration - - Weight 103.3 kg (227 lb 11.8 oz) 07/07/2024 8:18 AM CDT Height - - Body Mass Index - - Plan of Treatment Health Maintenance Due Date Last Done Comments Cervical Cancer Screening 2003 Depression Screening 2003 Hepatitis C Screening 2003 DTaP/Tdap/Td Vaccine (1 - Tdap) 11/03/2014 Varicella Vaccines (1 of 2 - 13+ 2-dose series) 11/03/2016 HPV Vaccines (1 - 3-dose series) 11/03/2018 Meningococcal B Vaccine (1 o f 2 - Standard) 2019 Hepatitis B Screening 11/03/2021 Regular Well Visit/Exam 18-64 11/03/2021 Influenza Vaccine (#1) 2024 Meningococcal Vaccine Aged Out No danyelle blake eligible based on patient's age to complete this topic Pneumococcal vaccine <65 Aged Out No longer eligible based on patient's age to complete this topic Insurance [facility]ICE PLUS [facility] HMO/PPO Address: [facility] [address] [place] [address] [facility] CHOICE PLUS [facility] HMO/PPO Address: [facility] [id number] [place] [id number] Care Teams Security Shift Supervisor Relationship Specialty Start Date End Date Kristopher Riley PA [address] [facility] [address] [place] [address] PCP - General Physician Electrical Contacts Adjuster 07/07/24
--- OUTSIDE RECORDS SUMMARY | 2025-02-05 21:10 | XMS_ITS | Clinical Summary ---
Author Organization [facility] [address] [place] [address] Address [address] [place] [address] Care Team Providers Care Repair Supervisor Name Role Phone Unavailable Primary Care Provider Unavailabl e Allergies No known active allergies Medications Effexor XR 75 mg Extended Release 24 hour capsuleIndicati ons:Mild episode of recurrent major depressive disorder 05/26/2022 Active venlafaxine (EFFEXOR XR) 150 mg Extended Release 24 hour capsuleIndicati ons:Mild episode of recurrent major depressive disorder take 1 capsule by mouth daily with food Active buPROPion HCL (WELLBUTRIN XL) 150 mg Extended Release 24 hour tablet Take 300 mg by mouth. 05/30/2024 Active Active Problems No known active problems Encounters Date Type Department Care Team Description 02/04/2025 12:20 PM HYDRAULIC MECHANIC Office Visit [place] [address] [phone] Kristopher Riley PA-C URI, acute (Primary Dx); Acute cough; Sore throat 01/20/2025 External Device Data STL ABSTRACTION Provider, Abstract 12/16/2024 External Device Data ST[facility] ABSTRACTION Provider, Abstract 11/14/2024 1:40 PM CDT Office Visit [place] [address] [phone] Kristopher Riley PA-C Encounter for routine adult health examination without abnormal findings (Primary Dx); Obesity (BMI 35.0-39.9 without comorbidity); terminal carman current use of therapeutic drug from Last 3 Months Family History Medical History Relation Name Comments Other Father Job Win epilepsy No Known Problems Maternal Grandfather Breast Cancer Maternal Grandmother Mari Osborne Diabetes Maternal Grandmother Mari Osborne Depression Mother Aster Win No Known Problems Paternal Grandfather No Known Problems Paternal Grandmother Asthma Sister Sam Win Relation Name Status Comments Father Job Win Alive Maternal Grandfather Maternal Grandmother Mari Osborne Mother Aster Win Alive Paternal Grandfather Alive Paternal Grandmother Alive Sister Sam Win Alive Social History Tobacco Use Types Packs/Day Years Used Date Smoking Tobacco: Never Tobacco Cessation:Counseling Given: Not Answered Comments:Vape/moderate smoker Alcohol Use Standard Drinks/Week Comments Not Currently 12 (1 standard drink = 0.6 oz pu re alcohol) Comments No Sex and Gender Information Value Date Recorded Sex Assigned at Female 05/14/2024 2:32 PM HYDRAULIC MECHANIC Legal Sex Female 7:52 AM HYDRAULIC MECHANIC Gender Identity Female 05/14/2024 2:32 PM HYDRAULIC MECHANIC Sexual Orientation Straight 05/16/2024 10 :18 AM HYDRAULIC MECHANIC Last Filed Vital Signs Vital Sign Reading Time Taken Comments Blood Pressure 130/66 02/04/2025 11:58 AM HYDRAULIC MECHANIC Pulse 88 02/04/2025 11:58 AM HYDRAULIC MECHANIC Temperature 36.8 C (98.3 F) 02/04/2025 11:58 AM HYDRAULIC MECHANIC Respiratory Rate - - Oxygen Saturation 96% 02/04/2025 11:58 AM HYDRAULIC MECHANIC Inhaled Oxygen Concentration - - Weight 98.4 kg (217 lb) 02/04/2025 11:58 AM HYDRAULIC MECHANIC Height 167.6 cm (5' 6) 02/04/2025 11:58 AM HYDRAULIC MECHANIC Body Mass Index 35.02 02/04/2025 11:58 AM HYDRAULIC MECHANIC Plan of Treatment Upcoming Encounters Date Type Department Care Team (Late st Contact Info) Description 11/20/2025 1:40 PM CDT Office Visit [facility] Primary Care [facility] [address] [phone] Kristopher Riley PA-C [address] [place] [address] Health Maintenance Due Date Last Done Comments CHLAMYDIA SCREENING (ANNUAL) 02-23 YEARS 11/03/2014 DTAP/TDAP/TD VACCINES (6 - Tdap) 11/03/2014 11/07/2007, 03/16/2005, 05/21/2004, Additional history exists HEPATITIS B VACCINES (1 of 3 - 19+ 3-dose series) 11/03/2022 INFLUENZA VACCINE (#1) 2024 CERVICAL CANCER SCREENING 11/03/2024 HPV/Cotest (21-29) 11/03/2024 PAP SMEAR 11/03/2024 HPV VACCINES Completed 08/07/2019, 11/12/2017 Preventative Visit- Commercial Completed 11/14/2024 Procedures Procedure Name Priority Date/Time Associated Diagnosis Comments POC INFLUENZA A/B AND COVID-19 ANTIGENS Routine 02/04/2025 12:29 PM HYDRAULIC MECHANIC Acute cough Sore throat POC RAPID STREP A ANTIGEN Routine 02/04/2025 12:21 PM HYDRAULIC MECHANIC Acute cough Sore throat LIPID PANEL Routine 11/13/2024 9:57 AM CDT Encounter for routine adult health examination without abnormal findings TSH REFLEXIVE Routine 11/13/2024 9:57 AM CDT Encounter for routine adult health examination without abnormal findings COMPREHENSIVE METABOLIC PANEL Routine 11/13/2024 9:57 AM CDT Encounter for routine adult health examination without abnormal findings CBC WITH DIFFERENTIAL Routine 11/13/2024 9:57 AM CDT Encounter for routine adult health examination without abnormal findings from Last 3 Months Results * POC INFLUENZA A/B AND COVID-19 ANTIGENS (02/04/2025 12:29 PM HYDRAULIC MECHANIC) INFLUENZA A AG POC Not Detected Not Detected [facility] INFLUENZA B AG POC Not Detected Not Detected [facility] COVID-19 ANTIGEN POC Presumptively Negative Presumptively Negative [facility] INTERNAL KIT QC POC Pass Pass [facility] KIT LOT NUMBER POC [id number] [facility] KIT EXP DATE POC 05/20/25 [facility] Upper Respiratory 02/04/2025 12:29 PM HYDRAULIC MECHANIC Kristopher Riley PA-C POINT OF CARE TESTING Final Result [facility] CLIA# [id number] [address] [phone] * POC RAPID STREP A ANTIGEN (02/04/2025 12:21 PM HYDRAULIC MECHANIC) RAPID STREP POC Negative Negative, Indeterminate [facility] PRIMARY [facility] INTERNAL KIT QC POC Pass Pass [facility] PRIMARY [facility] KIT LOT NUMBER POC [phone] [facility] KIT EXP DATE POC 09/02/25 [facility] READ METHOD POC Visual [facility] Upper Respiratory SPECIMEN FROM THROAT / Unknown 02/04/2025 12:21 PM HYDRAULIC MECHANIC Kristopher Riley PA-C POINT OF CARE TESTING Final Result Performing Organization Address City/[facility]/ZIP Co de Phone Number [facility] CLIA# [id number] [address] [phone] * TSH REFLEXIVE (11/13/2024 9:57 AM CDT) TSH 1.75 mIU/L [facility] Comment: Reference Range > or = 20 Years 0.40-4.50 Ranges First trimester 0.26-2.66 Second trimester 0.55-2.73 Third trimester 0.43-2.91 Test Performed at: [facility] [address] [address] [address] Seymour Macias MD Blood 11/13/2024 9:57 AM CDT 11/13/2024 9:57 AM CDT Kristopher Riley PA-C CHEMISTRY ORDERABLES Final Result [facility] [phone] [facility] [address] [place] [phone] * (ABNORMAL) CBC WITH DIFFERENTIAL (11/13/2024 9:57 AM CDT) WBC 7.0 3.8 - 10.8 Thousand/u L [facility] RBC 4.18 3.80 - 5.10 Million/uL [facility] HEMOGLOBIN 11.3(L) 11.7 - 15.5 g/dL [facility] HEMATOCRIT 36.1 35.0 - 45.0 % [facility] MCV 86.4 80.0 - 100.0 fL [facility] MCH 27.0 27.0 - 33.0 pg [facility] MCHC 31.3(L) 32.0 - 36.0 g/dL [facility] Comment: For adults, a slight decrease in the calculated MCHC value (in the range of 30 to 32 g/dL) is most likely not clinically significant; however, it should be interpreted with caution in correlation with other red cell parameters and the patient's clinical condition. RDW 13.7 11.0 - 15.0 % [facility] PLATELETS 367 140 - 400 Thousand/u L [facility] MPV 10.6 7.5 - 12.5 fL [facility] NEUTROPHIL ABSOLUTE 4,305 1,500 - 7,800 cells/uL [facility] LYMPHOCYTE ABSOLUTE 2,002 850 - 3,900 cells/uL [facility] MONOCYTE ABSOLUTE 511 200 - 950 cells/uL [facility] EOSINOPHIL ABSOLUTE 112 15 - 500 cells/uL [facility] BASOPHILS ABSOLUTE 70 0 - 200 cells/uL [facility] NEUTROPHIL 61.5 % [facility] LYMPHOCYTES 28.6 % [facility] MONOCYTE 7.3 % [facility] EOSINOPHILS 1.6 % [facility] BASOPHILS 1.0 % [facility] Comment: Test Performed at: [facility] [address] [facility] [place] [address] Seymour Macias MD Blood 11/13/2024 9:57 AM CDT 11/13/2024 9:57 AM CDT Kristopher Riley PA-C HEMATOLOGY ORDERABLES Final Result [facility] [phone] [facility] [address] [address] * (ABNORMAL) LIPID PANEL (11/13/2024 9:57 AM CDT) CHOLESTEROL 178 <200 mg/dL [facility] HDL 45(L) > OR = 50 mg/dL [facility] TRIGLYCERIDE 163(H) <150 mg/dL [facility] LDL CALCULATED 105(H) mg/dL (calc) [facility] Comment: Reference range: <100 Desirable range <100 mg/dL for primary prevention; <70 mg/dL for patients with CHD or diabetic patients with > or = 2 CHD risk factors. LDL-C is now calculated using the Hans-Lowell calculation, which is a validated novel method providing better accuracy than the Friedewald equation in the estimation of LDL-C. Hans WILCOX et al. RACHEL. 2013;310(19): 8707-5359 (http://education.TVtrip.Umbel/faq/WDL864) CHOL/HDL RATIO 4.0 <5.0 (calc) [facility] NON-HDL CHOLESTEROL 133(H) <130 mg/dL (calc) [facility] Comment: For patients with diabetes plus 1 major ASCVD risk factor, treating to a non-HDL-C goal of <100 mg/dL (LDL-C of <70 mg/dL) is considered a therapeutic option. Test Performed at: [facility] [address] [place] [address] [place] [address] Seymour Macias MD Blood 11/13/2024 9:57 AM CDT 11/13/2024 9:57 AM CDT us Kristopher Riley PA-C CHEMISTRY ORDERABLES Final Result [facility] [phone] [facility] [address] [place] [address] * COMPREHENSIVE METABOLIC PANEL (11/13/2024 9:57 AM CDT) GLUCOSE 90 65 - 99 mg/dL [facility] Comment: Fasting reference interval BUN 8 7 - 25 mg/dL [facility] CREATININE 0.62 0.50 - 0.96 mg/dL [facility] GFR 130 > OR = 60 mL/min/1. 73m2 [facility] BUN/CREAT RATIO SEE NOTE: 6 - 22 (calc) [facility] Comment: Not Reported: BUN and Creatinine are within reference range. SODIUM 138 135 - 146 mmol/L [facility] POTASSIUM 4.6 3.5 - 5.3 mmol/L [facility] CHLORIDE 104 98 - 110 mmol/L [facility] CO2 28 20 - 32 mmol/L [facility] CALCIUM 9.5 8.6 - 10.2 mg/dL [facility] TOTAL PROTEIN 7.3 6.1 - 8.1 g/dL [facility] ALBUMIN 4.5 3.6 - 5.1 g/dL [facility] GLOBULIN 2.8 1.9 - 3.7 g/dL (calc) [facility] ALBUMIN/GLOBULIN RATIO 1.6 1.0 - 2.5 (calc) [facility] BILIRUBIN TOTAL 0.3 0.2 - 1.2 mg/dL [facility] ALKALINE PHOSPHATASE 61 31 - 125 U/L [facility] AST 16 10 - 30 U/L [facility] ALT 24 6 - 29 U/L [facility] Comment: Test Performed at: [facility] [address] [address] Seymour Macias MD Blood 11/13/2024 9:57 AM CDT 11/13/2024 9:57 AM CDT Kristopher Riley PA-C CHEMISTRY ORDERABLES Final Result [facility] [phone] [facility] [address] [address] [place] [phone] from Last 3 Months Insurance IID [facility] IID [id number]
--- OUTSIDE RECORDS SUMMARY | 2025-02-05 21:11 | XMS_ITS | Patient Health Record ---
Author Organization [facility] Address [address] [place] [address] Care Team Providers Care Script Artist Name Role Phone Florina Odonnell Primary Care Provider [phone] Allergies No Known Allergies Reason For Referral No Information Medications Medication SIG (Take, Route, Frequency, Duration) Notes Start Date End Date Status Nexplanon 68 MG as directed Subcutaneous Not-Taking buPROPion HCl ER (XL) 300 MG 1 tablet in the morning Orally Once a day; Duration: 30 days 05/30/2024 Active Effexor XR 75 MG 1 capsule with food Orally Once a day; Duration: 30 days 05/26/2022 Active Effexor XR 150 MG 1 capsule with food Orally Once a day; Duration: 30 days Active Social History Tobacco Use: Social History Observation Description Date Details (start date - stop date) Unknown Sex Assigned At : Social History Observation Description Sex Assigned At Female Tobacco Control (Standard) Question Answer Notes Tobacco use: Uses tobacco in other forms Additional Findings: Tobacco user e-cigarette Problems Problem Type SNOMED Code ICD Code Onset Dates Problem Status W/U Status Risk Notes Problem Tobacco user (261844685) Nicotine dependence, unspecified, uncomplicated (F17.200) Active confirmed Problem Moderate recurrent major depression (46632635) Major depressive disorder, recurrent, moderate (F33.1) Active confirmed Problem Generalized anxiety disorder (41013771) Generalized anxiety disorder (F41.1) Active confirmed Encounters Encounter Location Date Provider Diagnosis [facility] [address] [place] [address] 10/16/2024 Florina Odonnell Major depressive disorder, recurrent, moderate F33.[address] [place] [address] 2024 Florina Odonnell Major depressive disorder, recurrent, moderate F33.1 [place] [address] [place] [address] 02/12/2024 Florina Odonnell Major depressive disorder, recurrent, moderate F33.1 and Generalized anxiety disorder F41.[address] [place] [address] 05/30/2024 Florina Odonnell Major depressive disorder, recurrent, moderate F33.1 ; Generalized anxiety disorder F41.1 and Nicotine dependence, unspecified, uncomplicated F17.200 [place] [address] [place] [address] 07/01/2024 Florina Odonnell Major depressive disorder, recurrent, moderate F33.1 and Generalized anxiety disorder F41.1 [place] [address] [place] [address] 11/13/2024 Florina Odonnell Major depressive disorder, recurrent, moderate F33.1 and Generalized anxiety disorder F41.1 [place] [address] [place] [address] 12/18/2024 Florina Odonnell Major depressive disorder, recurrent, moderate F33.1 and Generalized anxiety disorder F41.1 Assessments Encounter Date Diagnosis (ICD Code) Assessment Notes Treatment Notes Treatment Clinical Notes Section Notes 10/16/2024 Major depressive disorder, recurrent, moderate (ICD-10 - F33.1) 12/18/2024 Major depressive disorder, recurrent, moderate (ICD-10 - F33.1) Continue current medications. Labs done recently. Continue services as scheduled. May self-administer medications or be administered own oral medications per [place] protocols. Provided informed consent with understanding of side effects, adverse effects, risks and benefits as well as alternative treatments as previously discussed and with the above recommended medications & other aspects of the treatment program. Agrees to return sooner if symptoms worsen or suicidal or homicidal ideations occur. 2024 Major depressive disorder, recurrent, moderate (ICD-10 - F33.1) 07/01/2024 Major depressive disorder, recurrent, moderate (ICD-10 - F33.1) Continue current medications. Continue services as scheduled. Labs completed recently. May self-administer medications or be administered own oral medications per [facility] protocols. Provided informed consent with understanding of side effects, adverse effects, risks and benefits as well as alternative treatments as previously discussed and with the above recommended medications & other aspects of the treatment program. Agrees to return sooner if symptoms worsen or suicidal or homicidal ideations occur. 11/13/2024 Major depressive disorder, recurrent, moderate (ICD-10 - F33.1) Increase Bupropion to help with depression. Continue services as scheduled. Labs completed recently. May self-administer medications or be administered own oral medications per [facility] protocols. Provided informed consent with understanding of side effects, adverse effects, risks and benefits as well as alternative treatments as previously discussed and with the above recommended medications & other aspects of the treatment program. Agrees to return sooner if symptoms worsen or suicidal or homicidal ideations occur. 05/30/2024 Major depressive disorder, recurrent, moderate (ICD-10 - F33.1) Add Wellbutrin to help with depression and smoking cessation. Continue services as scheduled. Labs completed recently. May self-administer medications or be administered own oral medications per [facility] protocols. Provided informed consent with understanding of [...] or be administered own oral medications per [facility] protocols. Provided informed consent with understanding of side effects, adverse effects, risks and benefits as well as alternative treatments as previously discussed and with the above recommended medications & other aspects of the treatment program. Agrees to return sooner if symptoms worsen or suicidal or homicidal ideations occur. 02/12/2024 Generalized anxiety disorder (ICD-10 - F41.1) 05/30/2024 Generalized anxiety disorder (ICD-10 - F41.1) 11/13/2024 Generalized anxiety disorder (ICD-10 - F41.1) 07/01/2024 Generalized anxiety disorder (ICD-10 - F41.1) 12/18/2024 Generalized anxiety disorder (ICD-10 - F41.1) 05/30/2024 Nicotine dependence, unspecified, uncomplicated (ICD-10 - F17.200) Plan Of Treatment No Information Insurance Providers Payer Name Payer Address Payer Phone Subscriber Number Group Number Insured Name Patient Relationship to Insured Coverage Start Date Coverage End Date [address] TAMIR SPICER, [place] [phone] [id number] Pedro Win Self - patient is the insured 1 Medical (General) History Surgical History Surgery Date(Month/Year) tonsillectomy 2007 Hospitalization History Reason Date(Month/Year) -[facility] 07/2021 Virus 2013
== END 2025-02-05 17:48 | disposition home or self-care (01) ==
PROVIDERS: Emergency Provider Nurse Practitioner
DX: J06.9 Acute upper respiratory infection, unspecified (principal); J02.9 Acute pharyngitis, unspecified; F17.290 Nicotine dependence, other tobacco product, uncomplicated; Z79.899 Other long term (current) drug therapy
CPT/HCPCS: 87081; 87880; 99213; G0463